=== PATIENT | female | born 1970 | race Two or more races ===

== ENCOUNTER 2017-03-06 23:41 | Emergency (ER) | payer MEDICAID ==
--- NOTE | 2017-03-07 00:45 | RADIOLOGY REPORT (SQ) ---
EXAM DESCRIPTION: CT HEAD WITHOUT COMPLETED DATE/TIME: 03/07/2017 12:17 am REASON FOR STUDY: fall and AMS COMPARISON: None. TECHNIQUE: Axial images acquired through the brain without intravenous contrast. Images reviewed wi th bone, brain and subdural windows. Images stored on PACS. All CT scanners at this facility use dose modulation, iterative reconstruction, and/or weight based d osing when appropriate to reduce radiation dose to as low as reasonably achievable (ALARA). [facility]: Dose Right [facility]: CareDose [facility]: Dose Right [facility]: Teradose 4D [facility]: [employer] RADIATION DOSE: Up-to-date CT equipment and radiation dose reduction techniques were employed. CTDIv ol: 55.2 mGy. DLP: 974 mGy-cm. mGy. LIMITATIONS: None. FINDINGS: VENTRICLES: Normal size and contour. CEREBRUM: No masses. No hemorrhage. No midline shift. Normal hawkins/white matter differentiation. N o evidence for acute infarction. CEREBELLUM: No masses. No hemorrhage. No alteration of density. No evidence for acute infarction. EXTRAAXIAL SPACES: No fluid collections. No masses. ORBITS AND GLOBE: No intra- or extraconal masses. Normal contour of globe without masses. CALVARIUM: No fracture. PARANASAL SINUSES: No fluid or mucosal thickening. SOFT TISSUES: 0.8 cm likely benign epidermal cyst of the right posterior parietal scalp. OTHER: No other significant finding. IMPRESSION: No acute findings. TECHNICAL DOCUMENTATION: JOB ID: [id number] Quality ID # [id number]: Final reports with documentation of one or more dose reduction techniques (e.g., Au tomated exposure control, adjustment of the mA and/or kV according to patient size, use of iterative reconstruction technique) 2010 [employer]- All Rights Reserved
[2017-03-07 01:13] LABS: ABSOLUTE BASOPHILS # (AUTO) 0.1 10^3/uL (0.0-0.2); ABSOLUTE EOSINOPHILS # (AUTO) 0.3 10^3/uL (0.0-0.6); ABSOLUTE LYMPHOCYTES (AUTO) 2.3 10^3/uL (0.5-4.7); ABSOLUTE MONOCYTES (AUTO) 1.1 10^3/uL (0.1-1.4); ABSOLUTE NEUT (AUTO) 7.3 10^3/uL (1.7-8.2); BASOPHILS % (AUTO) 0.7 % (0-2); EOSINOPHILS % (AUTO) 2.9 % (0-6); HEMATOCRIT 38.1 % (36.0-47.0); HEMOGLOBIN 12.7 g/dL (12.0-15.5); LYMPHOCYTES % (AUTO) 20.7 % (13-45); MEAN CORPUSCULAR HEMOGLOBIN 30.5 pg (27.0-33.4); MEAN CORPUSCULAR HGB CONC 33.3 g/dL (32.0-36.0); MEAN CORPUSCULAR VOLUME 92 fl (80-97); MONOCYTES % (AUTO) 9.8 % (3-13); RED BLOOD COUNT 4.15 10^6/uL (3.72-5.28); SEGMENTED NEUTROPHILS % (AUTO) 65.9 % (42-78)
[2017-03-07 01:28] LABS: APPEARANCE,URINE SLIGHTLY-CLOUDY; BILIRUBIN,URINE NEGATIVE (NEGATIVE); GLUCOSE, URINE NEGATIVE (NEGATIVE); KETONES,URINE NEGATIVE (NEGATIVE); LEUKOCYTE ESTERASE,URINE LARGE (NEGATIVE); NITRITE,URINE NEGATIVE (NEGATIVE); PROTEIN,URINE NEGATIVE (NEGATIVE); URINE SPECIFIC GRAVITY 1.008; UROBILINOGEN,URINE NEGATIVE mg/dL (<2.0)
--- NOTE | 2017-03-07 01:30 | ER Document Report ---
ED General - General Chief Complaint: Fall Stated Complaint: ALTERED MENTAL STATUS/FALL Time Seen by Provider: 03/06/17 23:56 Mode of Arrival: Medic Information source: Patient, Relative, Emergency Med Personnel, Outside Facility Records - [facility] Notes: Patient is a 46-year-old female history of multiple sclerosis and schizophrenia presents emergency department from local [facility] with report that she fell and was on the ground. The patient normally is supposed to use a walker, but she has not been using the walker, resulting in some falls. The patient states she struck her head and previously described a headache. On my questioning she denies any headache. She does report some knee pain, and it is unclear as to whether not the knee pain is new or old. The patient denies any chest pain or difficulty breathing. The patient was previously in a [facility] for 8 months and [place], but they transferred the patient due to renovations to the [facility] more locally 6 days ago. The [facility] staff questions whether not the patient may be somewhat altered, although they do not have good assessment of her usual baseline. Discussion was undertaken with the patient's son and he stated that the patient has chronic schizophrenia and this is not much different than her usual baseline. Patient has a chronic indwelling Estrada catheter due to urinary retention. - Related Data Allergies/Adverse Reactions: Macrolide Antibiotics Allergy (Verified 03/07/17 00:18) yellow dye Allergy (Verified 03/07/17 00:18) ketolides Allergy (Uncoded 03/07/17 00:18) yellow dye non-tartrazine Allergy (Uncoded 03/07/17 00:18) Past Medical History - General Information source: Patient Cannot obtain history due to: Altered mental status - Social History Smoking Status: Never Smoker Frequency of alcohol use: None Drug Abuse: None Lives with: Assisted Family History: Reviewed & Not Pertinent Psychiatric Medical History: Reports: Hx Schizophrenia Review of Systems - Review of Systems Notes: REVIEW OF SYSTEMS: CONSTITUTIONAL : Denies fever, chills, or sweats. Denies recent illness. EENT: Denies eye, ear, throat, or mouth pain or symptoms. Denies nasal or sinus congestion or discharge. Denies throat, tongue, or mouth swelling or difficulty swallowing. CARDIOVASCULAR: Denies chest pain. Denies palpitations or racing or irregular heart beat. Denies ankle edema. RESPIRATORY: Denies cough, cold, or chest congestion. Denies shortness of breath, difficulty breathing, or wheezing. GASTROINTESTINAL: Denies abdominal pain or distention. Denies nausea, vomiting , or diarrhea. Denies blood in vomitus, stools, or per rectum. Denies black, tarry stools. Denies constipation. GENITOURINARY: Denies difficulty urinating, painful urination, burning, frequency, blood in urine, or discharge. FEMALE GENITOURINARY: Denies vaginal bleeding, heavy or abnormal periods, irregular periods. Denies vaginal discharge or odor. MUSCULOSKELETAL: Denies back or neck pain or stiffness. Patient reports right knee pain chronically, possibly is worse now. SKIN: Denies rash, lesions or sores. HEMATOLOGIC : Denies easy bruising or bleeding. LYMPHATIC: Denies swollen, enlarged glands. NEUROLOGICAL: skilled nursing report some confusion versus altered mental status. Patient denies this. Denies passing out or loss of consciousness. Denies dizziness or lightheadedness. Denies weakness or paralysis or loss of use of either side. Denies problems with gait or speech. Denies sensory loss, numbness, or tingling. Denies seizures. Report of prior headache. No current headache. PSYCHIATRIC: Denies anxiety or stress. Denies depression, suicidal ideation, or homicidal ideation. ALL OTHER SYSTEMS REVIEWED AND NEGATIVE. Dictation was performed using [employer] voice recognition software Physical Exam - Vital signs Vitals: Temp Pulse Resp BP Pulse Ox 98.2 F 72 18 112/84 96 03/06/17 23:46 03/06/17 23:46 03/06/17 23:46 03/06/17 23:46 03/06/17 23:46 - Notes Notes: Keep the room 20 pyelonephritis had some vomiting previously he is waiting to get vitals for PHYSICAL EXAMINATION: GENERAL: Well-appearing, well-nourished and in no acute distress. HEAD: Atraumatic, normocephalic. EYES: Pupils equal round and reactive to light, extraocular movements intact, conjunctiva are normal. ENT: Nares patent, oropharynx clear without exudates. Moist mucous membranes. NECK: Normal range of motion, supple without lymphadenopathy LUNGS: Breath sounds clear to auscultation bilaterally and equal. No wheezes rales or rhonchi. HEART: Regular rate and rhythm without murmurs ABDOMEN: Soft, nontender, nondistended abdomen. No guarding, no rebound. No masses appreciated. Female : deferred. Chronic indwelling Estrada catheter noted. Musculoskeletal: Normal range of motion, no pitting or edema. No cyanosis. patient has mild pain to the right knee. No crepitance or bony deformity. She has a slight valgus deformity noted there, which appears chronic. Ligamentous structures appear intact. Distally she is neurovascularly intact. NEUROLOGICAL: Cranial nerves grossly intact. Normal sensory exam. Patient has mild bilateral lower extremity weakness but there is no focal unilateral weakness noted. Patient normally ambulates with a walker. PSYCH: Normal mood, normal affect. SKIN: Warm, Dry, normal turgor, no rashes or lesions noted. Course - Re-evaluation Re-evalutation: 03/07/17 03:21 CT scan of the head is negative. Lab studies showed no anemia or renal insufficiency or evidence for sepsis. Patient has no meningismus or neck tenderness. Chronic indwelling Estrada catheter shows evidence for UTI. Urine culture taken. Patient started on Bactrim. No suggestion for acute intracranial injury, sepsis, anemia. According to the patient's son who is contacted, patient appears to be at her mental status baseline. 03/07/17 03:22 - Vital Signs Vital signs: Temp Pulse Resp BP Pulse Ox 98.2 F 72 18 112/84 96 03/06/17 23:46 03/06/17 23:46 03/06/17 23:46 03/06/17 23:46 03/06/17 23:46 - Laboratory Result Diagrams: 03/07/17 01:01 03/07/17 01:35 Laboratory results interpreted by me: 03/07/17 03/07/17 03/07/17 01:01 01:01 01:35 WBC 11.0 H RDW 16.0 H BUN 26 H Direct Bilirubin 0.5 H Urine Blood SMALL H Ur Leukocyte Esterase LARGE H - EKG Interpretation by Il EKG shows normal: Sinus rhythm Rate: Normal Additional EKG results interpreted by me: 03/07/17 03:06 EKG as interpreted by vt showed normal sinus rhythm heart rate of 79. There is no gross evidence for acute PR or ischemia identified. Discharge - Discharge Clinical Impression: Accidental fall Qualifiers: Encounter type: initial encounter Qualified Code(s): W19.XXXA - Unspecified fall, initial encounter Head injury Qualifiers: Encounter type: initial encounter Qualified Code(s): S09.90XA - Unspecified injury of head, initial encounter Urinary tract infection Qualifiers: Urinary tract infection type: catheter-associated UTI Indwelling urinary catheter type: indwelling urethral catheter Encounter type: initial encounter Qualified Code(s): T83.511A - Infection and inflammatory reaction due to indwelling urethral catheter, initial encounter Knee sprain Qualifiers: Encounter type: initial encounter Involved ligament of knee: unspecified ligament Laterality: right Qualified Code(s): S83.91XA - Sprain of unspecified site of right knee, initial encounter Condition: Stable Disposition: HOME, SELF-CARE Instructions: Sprained Knee ([facility]), Ice & Elevation ([facility]), Head Injury Precautions ([facility]) Additional Instructions: Use a walker at all times. Prescriptions: Sulfamethoxazole/Trimethoprim [Bactrim Ds Tablet] 1 each PO BID #20 tablet Referrals: LIU BROCK, REGULATORY CONSULTANT [Primary Care Provider] - Follow up as needed
[2017-03-07 02:07] LABS: ALANINE AMINOTRANSFERASE 27 U/L (9-52); ALKALINE PHOSPHATASE 75 U/L (38-126); ANION GAP 12 (5-19); ASPARTATE AMINO TRANSFERASE 23 U/L (14-36); BILIRUBIN,DIRECT 0.5 mg/dL (0.0-0.4); BILIRUBIN,TOTAL 0.7 mg/dL (0.2-1.3); BLOOD UREA NITROGEN 26 mg/dL (7-20); CALCIUM 9.6 mg/dL (8.4-10.2); CARBON DIOXIDE 30 mmol/L (22-30); CHLORIDE 98 mmol/L (98-107); CREATININE RESULT 0.91 mg/dL (0.52-1.25); GLUCOSE 97 mg/dL (75-110); MAGNESIUM 1.8 mg/dL (1.6-2.3); POTASSIUM 4.1 mmol/L (3.6-5.0); TOTAL PROTEIN 7.5 g/dL (6.3-8.2)
--- NOTE | 2017-03-07 02:23 | RADIOLOGY REPORT (SQ) ---
EXAM DESCRIPTION: KNEE RIGHT 2 VIEWS COMPLETED DATE/TIME: 03/07/2017 2:03 am REASON FOR STUDY: fall with pain COMPARISON: None. NUMBER OF VIEWS: 2 views. TECHNIQUE: AP and lateral radiographic images acquired of the right knee. LIMITATIONS: None. FINDINGS: MINERALIZATION: Normal. BONES: No acute fracture or dislocation. No worrisome bone lesions. JOINT: No effusion. SOFT TISSUES: No soft tissue swelling. No radio-opaque foreign body. OTHER: No other significant finding. IMPRESSION: NEGATIVE STUDY OF THE RIGHT KNEE. NO RADIOGRAPHIC EVIDENCE OF ACUTE INJURY. TECHNICAL DOCUMENTATION: JOB ID: [id number] [employer]- All Rights Reserved
[2017-03-07] MEDS ORDERED: SULFAMETHOXAZOLE/TRIMETHOPRIM 800-160 MG TABLET PO ONE (02:59)
[2017-03-07 05:07] VITALS: BP 126/75
--- NOTE | 2017-03-07 08:12 | EKG REPORT ---
SEVERITY:- NORMAL ECG - SINUS RHYTHM : Confirmed by: Bonifacio Scott MD 07-Mar-2017 08:11:48
== END 2017-03-07 05:00 | disposition home or self-care (01) ==
LOC: ER 23:41
DX: S83.91XA Sprain of unspecified site of right knee, initial encounter (principal); S09.90XA Unspecified injury of head, initial encounter; W19.XXXA Unspecified fall, initial encounter; Y92.129 Unspecified place in nursing home as the place of occurrence of the external cause; T83.511A Infection and inflammatory reaction due to indwelling urethral catheter, initial encounter; Y73.8 Miscellaneous gastroenterology and urology devices associated with adverse incidents, not elsewhere classified; R33.9 Retention of urine, unspecified; G35 Multiple sclerosis; F20.9 Schizophrenia, unspecified; M25.561 Pain in right knee; G89.29 Other chronic pain; Z88.1 Allergy status to other antibiotic agents; Z91.048 Other nonmedicinal substance allergy status
CPT/HCPCS: 93005; 99285; 36415; 87086; 83735; 85025; 87088; 80053; 81001; 87186; 73560; 70450; 93010; J3490

== ENCOUNTER 2017-03-09 16:05 | Emergency (ER) | payer MEDICAID ==
--- NOTE | 2017-03-09 17:18 | ER Document Report ---
ED Medical Screen (RME) - General Chief Complaint: Urinary Problem Stated Complaint: FATIGUE Time Seen by Provider: 03/09/17 17:15 Mode of Arrival: Medic Information source: Patient, Emergency Med Personnel, [facility] Records, Outside Facility Records Notes: This is a 46-year-old female with a history of schizophrenia and multiple sclerosis who is brought into the emergency room because of increased lethargy and somnolence. Review of hospital records reveals that she was evaluated a few days ago after falling and hitting her head. CT of the head at that time showed no acute bleed. Review of the patient's records from [place] has reveals that she is on a number of medicines that can result in increased lethargy. Patient states she does not feel that well right now. She is not able to elaborate any further. There is no history from the records of any fever, chills or recent illnesses. TRAVEL OUTSIDE OF THE [place] IN LAST 30 DAYS: No - Related Data Allergies/Adverse Reactions: Macrolide Antibiotics Allergy (Verified 03/09/17 16:16) yellow dye Allergy (Verified 03/09/17 16:16) ketolides Allergy (Uncoded 03/09/17 16:16) yellow dye non-tartrazine Allergy (Uncoded 03/09/17 16:16) Past Medical History Renal/ Medical History: Denies: Hx Peritoneal Dialysis Psychiatric Medical History: Reports: Hx Schizophrenia Physical Exam - Vital signs Vitals: Pulse Resp BP Pulse Ox 99 20 148/106 H 98 03/09/17 16:12 03/09/17 16:12 03/09/17 16:12 03/09/17 16:12 Course - Vital Signs Vital signs: Temp Pulse Resp BP Pulse Ox 99 20 148/106 H 98 03/09/17 16:12 03/09/17 16:12 03/09/17 16:12 03/09/17 16:12
[2017-03-09 18:09] LABS: ABSOLUTE BASOPHILS # (AUTO) 0.1 10^3/uL (0.0-0.2); ABSOLUTE EOSINOPHILS # (AUTO) 0.1 10^3/uL (0.0-0.6); ABSOLUTE LYMPHOCYTES (AUTO) 2.8 10^3/uL (0.5-4.7); ABSOLUTE MONOCYTES (AUTO) 0.8 10^3/uL (0.1-1.4); ABSOLUTE NEUT (AUTO) 5.6 10^3/uL (1.7-8.2); BASOPHILS % (AUTO) 0.9 % (0-2); EOSINOPHILS % (AUTO) 1.4 % (0-6); HEMATOCRIT 39.1 % (36.0-47.0); HGB HCT DIFFERENCE -0.1; LYMPHOCYTES % (AUTO) 29.6 % (13-45); MEAN CORPUSCULAR HEMOGLOBIN 30.7 pg (27.0-33.4); MEAN CORPUSCULAR HGB CONC 33.2 g/dL (32.0-36.0); MEAN CORPUSCULAR VOLUME 93 fl (80-97); MONOCYTES % (AUTO) 8.7 % (3-13); RED BLOOD COUNT 4.23 10^6/uL (3.72-5.28); RED CELL DISTRIBUTION WIDTH 15.4 % (11.5-14.0); SEGMENTED NEUTROPHILS % (AUTO) 59.4 % (42-78); WHITE BLOOD COUNT 9.3 10^3/uL (4.0-10.5)
--- NOTE | 2017-03-09 18:14 | RADIOLOGY REPORT (SQ) ---
EXAM DESCRIPTION: CHEST SINGLE VIEW COMPLETED DATE/TIME: 03/09/2017 6:06 pm REASON FOR STUDY: altered ms COMPARISON: None. EXAM PARAMETERS: NUMBER OF VIEWS: One view. TECHNIQUE: Single frontal radiographic view of the chest acquired. RADIATION DOSE: NA LIMITATIONS: None. FINDINGS: LUNGS AND PLEURA: No opacities, masses or pneumothorax. No pleural effusion. MEDIASTINUM AND HILAR STRUCTURES: No masses. Contour normal. HEART AND VASCULAR STRUCTURES: Heart normal in size. Normal vasculature. BONES: No acute findings. HARDWARE: None in the chest. OTHER: No other significant finding. IMPRESSION: NO ACUTE RADIOGRAPHIC FINDING IN THE CHEST. TECHNICAL DOCUMENTATION: JOB ID: [id number]
[2017-03-09 18:20] LABS: ALANINE AMINOTRANSFERASE 29 U/L (9-52); ALBUMIN 4.2 g/dL (3.5-5.0); ALKALINE PHOSPHATASE 83 U/L (38-126); ANION GAP 12 (5-19); ASPARTATE AMINO TRANSFERASE 33 U/L (14-36); BILIRUBIN,DIRECT 0.5 mg/dL (0.0-0.4); BILIRUBIN,TOTAL 0.6 mg/dL (0.2-1.3); BLOOD UREA NITROGEN 28 mg/dL (7-20); CALCIUM 9.7 mg/dL (8.4-10.2); CARBON DIOXIDE 29 mmol/L (22-30); CHLORIDE 100 mmol/L (98-107); CREATININE RESULT 1.32 mg/dL (0.52-1.25); GLUCOSE 90 mg/dL (75-110); MAGNESIUM 1.9 mg/dL (1.6-2.3); POTASSIUM 4.1 mmol/L (3.6-5.0); SODIUM 141.1 mmol/L (137-145); TOTAL PROTEIN 7.9 g/dL (6.3-8.2)
--- NOTE | 2017-03-09 18:20 | RADIOLOGY REPORT (SQ) ---
EXAM DESCRIPTION: CT HEAD WITHOUT COMPLETED DATE/TIME: 03/09/2017 6:08 pm REASON FOR STUDY: somnolence COMPARISON: 03/07/2017 TECHNIQUE: Axial images acquired through the brain without intravenous contrast. Images reviewed wi th bone, brain and subdural windows. Images stored on PACS. All CT scanners at this facility use dose modulation, iterative reconstruction, and/or weight based d osing when appropriate to reduce radiation dose to as low as reasonably achievable (ALARA). [facility]: Dose Right [facility]: CareDose [facility]: Dose Right [facility]: Teradose 4D [facility]: [employer] RADIATION DOSE: mGy. LIMITATIONS: None. FINDINGS: VENTRICLES: Normal size and contour. CEREBRUM: No masses. No hemorrhage. No midline shift. Normal hawkins/white matter differentiation. N o evidence for acute infarction. CEREBELLUM: No masses. No hemorrhage. No alteration of density. No evidence for acute infarction. EXTRAAXIAL SPACES: No fluid collections. No masses. ORBITS AND GLOBE: No intra- or extraconal masses. Normal contour of globe without masses. CALVARIUM: No fracture. PARANASAL SINUSES: No fluid or mucosal thickening. SOFT TISSUES: No mass or hematoma. OTHER: No other significant finding. IMPRESSION: No acute intracranial findings. TECHNICAL DOCUMENTATION: JOB ID: [id number] Quality ID # [id number]: Final reports with documentation of one or more dose reduction techniques (e.g., Au tomated exposure control, adjustment of the mA and/or kV according to patient size, use of iterative reconstruction technique) 2010 [employer]- All Rights Reserved
--- NOTE | 2017-03-09 18:34 | ER Document Report ---
ED General - General Mode of Arrival: Medic Information source: Patient, Transfer Record, [facility] Records TRAVEL OUTSIDE OF THE [place] IN LAST 30 DAYS: No - HPI Onset: Other - Refer to HPI notes <LAISHA SEN - Last Filed: 03/09/17 20:34> <DESIREMCKAY ANN - Last Filed: 03/09/17 21:53> - General Chief Complaint: Urinary Problem Stated Complaint: FATIGUE Time Seen by Provider: 03/09/17 17:15 Notes: Patient is a 46-year-old female presenting to the emergency department from [facility] for increased lethargy and somnolence. Patient was evaluated in this emergency department a few days ago after a fall and head injury. Patient has history of schizophrenia and multiple sclerosis. Patient states she does not feel well right now she feels more tired than normally. Patient denies any symptoms of dysuria, fever or other recent illness. (LAISHA SEN) - Related Data Allergies/Adverse Reactions: Macrolide Antibiotics Allergy (Verified 03/09/17 16:16) yellow dye Allergy (Verified 03/09/17 16:16) ketolides Allergy (Uncoded 03/09/17 16:16) yellow dye non-tartrazine Allergy (Uncoded 03/09/17 16:16) Past Medical History - General Information source: Patient, Emergency Med Personnel, [facility] Records, Outside Facility Records - Social History Smoking Status: Unknown if Ever Smoked Family History: None Patient has suicidal ideation: No Patient has homicidal ideation: No Musculoskeltal Medical History: Reports Hx Multiple Sclerosis Psychiatric Medical History: Reports: Hx Schizophrenia Surgical Hx: Negative <LAISHA SEN - Last Filed: 03/09/17 20:34> Review of Systems - Review of Systems Constitutional: See HPI, Malaise, Weakness EENT: No symptoms reported Cardiovascular: No symptoms reported Respiratory: No symptoms reported Gastrointestinal: No symptoms reported Genitourinary: No symptoms reported Female Genitourinary: No symptoms reported Musculoskeletal: No symptoms reported Skin: No symptoms reported Hematologic/Lymphatic: No symptoms reported Neurological/Psychological: See HPI, Weakness -: Yes All other systems reviewed and negative <LAISHA SEN - Last Filed: 03/09/17 20:34> Physical Exam - Vital signs Interpretation: Hypertensive <LAISHA SEN - Last Filed: 03/09/17 20:34> <MCKAY PHIPPS - Last Filed: 03/09/17 21:53> - Vital signs Vitals: Pulse Resp BP Pulse Ox 99 20 148/106 H 98 03/09/17 16:12 03/09/17 16:12 03/09/17 16:12 03/09/17 16:12 - Notes Notes: GENERAL: Alert, drowsy but arousable, appears at baseline. Mild distress. HEAD: Normocephalic, atraumatic. EYES: Appear normal. Pupils equal, round, and reactive to light. ENT: Dry mucus membranes, tongue midline. NECK: Full range of motion. Supple. Trachea midline. LUNGS: Clear to auscultation bilaterally, no wheezes, rales, or rhonchi. No respiratory distress. HEART: Regular rate and rhythm. No murmurs, gallops, or rubs. ABDOMEN: Soft, non-tender. Non-distended. Normal bowel sounds. EXTREMITIES: Moves all 4 extremities spontaneously. Normal strength. No edema. NEUROLOGICAL: Alert. Patient is neurologically at her baseline. PSYCH: Normal affect, normal mood. SKIN: Warm, dry, normal turgor. No rashes or lesions noted. (LAISHA SEN) Course - Laboratory Result Diagrams: 03/09/17 17:52 03/09/17 17:52 <LAISHA SEN - Last Filed: 03/09/17 20:34> - Laboratory Result Diagrams: 03/09/17 17:52 03/09/17 17:52 <MCKAY PHIPPS - Last Filed: 03/09/17 21:53> - Re-evaluation Re-evalutation: 03/09/17 21:50 Patient is a 46-year-old female who was sent in from [facility] for weakness and being tired. Patient states that she feels well but she has been more tired lately. Patient was recently seen for a fall. No acute findings on head CT. Patient was also recently diagnosed with UTI and started on Bactrim. Patient with increased WBCs in urine. Patient given a dose of Rocephin here and will be discharged home with Cefdinir/ Macrobid. The patient was going to be given Keflex but has a yellow dye allergy. Slight acute renal insufficiency likely from decreased p.o. Patient has been fluid hydrated here and is feeling better. Stable for discharge. Urine sent for culture. (MCKAY PHIPPS) - Vital Signs Vital signs: Temp Pulse Resp BP Pulse Ox 98.9 F 90 20 140/92 H 98 03/09/17 20:51 03/09/17 20:51 03/09/17 20:51 03/09/17 20:51 03/09/17 20:51 - Laboratory Laboratory results interpreted by me: 03/09/17 03/09/17 03/09/17 17:52 17:52 18:10 RDW 15.4 H BUN 28 H Creatinine 1.32 H Est GFR ( Amer) 52 L Est GFR (Non-Af Amer) 43 L Direct Bilirubin 0.5 H Urine Protein 100 H Urine Ketones TRACE H Urine Urobilinogen 2.0 H Ur Leukocyte Esterase LARGE H Urine Ascorbic Acid 40 H Discharge <LAISHA SEN - Last Filed: 03/09/17 20:34> <MCKAY PHIPPS - Last Filed: 03/09/17 21:53> - Discharge Clinical Impression: Urinary tract infection Qualifiers: Urinary tract infection type: site unspecified Hematuria presence: with hematuria Qualified Code(s): N39.0 - Urinary tract infection, site not specified ; R31.9 - Hematuria, unspecified Condition: Stable Disposition: HOME, SELF-CARE Instructions: Urinary Tract Infection ([facility]) Additional Instructions: Please stop taking Bactrim and start taking Cefdinir and macrobid instead. Please return if you have any further concerns or symptoms. Prescriptions: Cefdinir [Omnicef 300 mg Capsule] 1 cap PO BID #30 capsule Nitrofurantoin/Nitrofuran Mac [Macrobid 100 mg Capsule] 1 tab PO BID #20 capsule Referrals: LIU BROCK, T[facility]NER [Primary Care Provider] - Follow up as needed Scribe Attestation: 03/09/17 21:52 I personally performed the services described in the documentation, reviewed and edited the documentation which was dictated to the scribe in my presence, and it accurately records my words and actions. (MCKAY PHIPPS) Scribe Documentation - Scribe Written by Scribe:: Monica Lewis, 03/09/[id number] acting as scribe for :: Desire <LAISHA SEN - Last Filed: 03/09/17 20:34>
[2017-03-09 18:41] LABS: APPEARANCE,URINE TURBID; BILIRUBIN,URINE NEGATIVE (NEGATIVE); GLUCOSE, URINE NEGATIVE (NEGATIVE); KETONES,URINE TRACE mg/dL (NEGATIVE); LEUKOCYTE ESTERASE,URINE LARGE (NEGATIVE); NITRITE,URINE NEGATIVE (NEGATIVE); PROTEIN,URINE 100 mg/dL (NEGATIVE)
[2017-03-09] MEDS ORDERED: NORMAL SALINE 500 ML IV ONE (19:02)
[2017-03-09] MEDS ORDERED: LIDOCAINE 1% INJ-PF (10 MG/ML) 30 ML SDV INFIL ONE (19:03)
[2017-03-09] MEDS ORDERED: CEFTRIAXONE INJ 1000 MG VIAL IM ONE (19:03)
[2017-03-09 23:27] VITALS: BP 132/92
== END 2017-03-10 | disposition home or self-care (01) ==
LOC: ER 16:05
DX: N39.0 Urinary tract infection, site not specified (principal); R31.9 Hematuria, unspecified; R53.83 Other fatigue; R53.1 Weakness; G35 Multiple sclerosis
CPT/HCPCS: 99284; 96372; 36415; 87086; 83735; 85025; 87088; 80053; 81001; 80164; 87186; 71010; 70450; J3490; J0696

== ENCOUNTER 2017-03-10 06:50 | Emergency (ER) | payer MEDICAID ==
--- NOTE | 2017-03-10 06:56 | ER Document Report ---
ED General - General Stated Complaint: FALL,CATHETER ISSUE Time Seen by Provider: 03/10/17 06:55 Mode of Arrival: Medic Information source: Patient, Emergency Med Personnel Notes: 46-year-old female who presents from care facility where she has an indwelling Estrada catheter presents with complaints of Estrada catheter issue, notes patient had fallen and pulled out her Estrada TRAVEL OUTSIDE OF THE [place] IN LAST 30 DAYS: No - HPI Onset: Just prior to arrival Onset/Duration: Sudden Quality of pain: No pain Severity: None Pain Level: Denies Associated symptoms: None Exacerbated by: Denies Relieved by: Denies Similar symptoms previously: Yes Recently seen / treated by doctor: Yes - Related Data Allergies/Adverse Reactions: Macrolide Antibiotics Allergy (Verified 03/09/17 16:16) yellow dye Allergy (Verified 03/09/17 16:16) ketolides Allergy (Uncoded 03/09/17 16:16) yellow dye non-tartrazine Allergy (Uncoded 03/09/17 16:16) Past Medical History - Social History Smoking Status: Never Smoker Cigarette use (# per day): No Chew tobacco use (# tins/day): No Smoking Education Provided: No Family History: None Renal/ Medical History: Denies: Hx Peritoneal Dialysis Musculoskeltal Medical History: Reports Hx Multiple Sclerosis Psychiatric Medical History: Reports: Hx Schizophrenia Review of Systems - Review of Systems Notes: REVIEW OF SYSTEMS: CONSTITUTIONAL : Denies fever, chills, or sweats. Denies recent illness. EENT: Denies eye, ear, throat, or mouth pain or symptoms. Denies nasal or sinus congestion or discharge. Denies throat, tongue, or mouth swelling or difficulty swallowing. CARDIOVASCULAR: Denies chest pain. Denies palpitations or racing or irregular heart beat. Denies ankle edema. RESPIRATORY: Denies cough, cold, or chest congestion. Denies shortness of breath, difficulty breathing, or wheezing. GASTROINTESTINAL: Denies abdominal pain or distention. Denies nausea, vomiting , or diarrhea. Denies blood in vomitus, stools, or per rectum. Denies black, tarry stools. Denies constipation. GENITOURINARY: Denies difficulty urinating, painful urination, burning, frequency, blood in urine, or discharge. FEMALE GENITOURINARY: Denies vaginal bleeding, heavy or abnormal periods, irregular periods. Denies vaginal discharge or odor. MUSCULOSKELETAL: Denies back or neck pain or stiffness. Denies joint pain or swelling. SKIN: Denies rash, lesions or sores. HEMATOLOGIC : Denies easy bruising or bleeding. LYMPHATIC: Denies swollen, enlarged glands. NEUROLOGICAL: Denies confusion or altered mental status. Denies passing out or loss of consciousness. Denies dizziness or lightheadedness. Denies headache. Denies weakness or paralysis or loss of use of either side. Denies problems with gait or speech. Denies sensory loss, numbness, or tingling. Denies seizures. PSYCHIATRIC: Denies anxiety or stress. Denies depression, suicidal ideation, or homicidal ideation. ALL OTHER SYSTEMS REVIEWED AND NEGATIVE. PHYSICAL EXAMINATION: GENERAL: Well-appearing, well-nourished and in no acute distress. HEAD: Atraumatic, normocephalic. EYES: Pupils equal round and reactive to light, extraocular movements intact, conjunctiva are normal. ENT: Dry lips rhythmic motion of mouth nares patent, oropharynx clear without exudates. NECK: Normal range of motion, supple without lymphadenopathy LUNGS: Breath sounds clear to auscultation bilaterally and equal. No wheezes rales or rhonchi. HEART: Regular rate and rhythm without murmurs ABDOMEN: Soft, nontender, nondistended abdomen. No guarding, no rebound. No masses appreciated. Female : Estrada catheter is in place Musculoskeletal: Normal range of motion, no pitting or edema. No cyanosis. NEUROLOGICAL: Cranial nerves grossly intact. Normal speech, normal gait. Normal sensory, motor exams PSYCH: Normal mood, normal affect. SKIN: Warm, Dry, normal turgor, no rashes or lesions noted. Dictation was performed using [employer] voice recognition software Physical Exam - Vital signs Vitals: Temp Pulse Resp BP Pulse Ox 98.9 F 96 18 138/87 H 100 03/10/17 06:54 03/10/17 06:54 03/10/17 06:54 03/10/17 06:54 03/10/17 06:54 Course - Re-evaluation Re-evalutation: 03/10/17 08:28 It appears the Estrada catheter is in place but the Estrada bag was dislodged, I simply put it back into the Estrada and urine began draining immediately. It is noted that the patient's pants were wet because urine was already draining from the open Estrada After performing a Medical Screening Examination, I estimate there is LOW risk for ACUTE APPENDICITIS, BOWEL OBSTRUCTION, ACUTE CHOLECYSTITIS, PERFORATED DIVERTICULITIS, INCARCERATED HERNIA, PANCREATITIS, PELVIC INFLAMMATORY DISEASE, PERFORATED ULCER, ECTOPIC , or TUBO-OVARIAN ABSCESS, thus I consider the discharge disposition reasonable. Also, there is no evidence or peritonitis , sepsis, or toxicity. I have reevaluated this patient multiple times and no significant life threatening changes are noted. The patient and I have discussed the diagnosis and risks, and we agree with discharging home with close follow-up with the understanding that symptoms and presentations can change. We also discussed returning to the Emergency Department immediately if new or worsening symptoms occur. We have discussed the symptoms which are most concerning (e.g., bloody stool, fever, changing or worsening pain, vomiting) that necessitate immediate return. - Vital Signs Vital signs: Temp Pulse Resp BP Pulse Ox 98.9 F 96 18 138/87 H 100 03/10/17 06:54 03/10/17 06:54 03/10/17 06:54 03/10/17 06:54 03/10/17 06:54 Discharge - Discharge Clinical Impression: Estrada catheter problem Qualifiers: Encounter type: initial encounter Qualified Code(s): T83.9XXA - Unspecified complication of genitourinary prosthetic device, implant and graft, initial encounter Accidental fall Qualifiers: Encounter type: initial encounter Qualified Code(s): W19.XXXA - Unspecified fall, initial encounter Condition: Stable Disposition: HOME, SELF-CARE Additional Instructions: The Estrada catheter did not come out of the patient, it was just dislodged from the Estrada bag all you had to do was push the end of the Estrada bag tubing back into the catheter Referrals: LIU BROCK, LABOR EXPEDITER [Primary Care Provider] - Follow up as needed
[2017-03-10 06:57] VITALS: BP 138/87
== END 2017-03-10 08:05 | disposition home or self-care (01) ==
LOC: ER 06:50
DX: Z46.6 Encounter for fitting and adjustment of urinary device (principal); W19.XXXA Unspecified fall, initial encounter; Y92.199 Unspecified place in other specified residential institution as the place of occurrence of the external cause; G35 Multiple sclerosis; Z88.1 Allergy status to other antibiotic agents; Z91.048 Other nonmedicinal substance allergy status
CPT/HCPCS: 99284

== ENCOUNTER 2017-03-11 13:34 | Emergency (ER) | payer MEDICAID ==
--- NOTE | 2017-03-11 14:28 | ER Document Report ---
Doctor's Note Notes: 03/11/17 14:26 46-year-old female history of MS schizophrenia indwelling Estrada catheter removed here approximately a week and half ago and has not been here 4 times in the last 5 days with folds and other complaints presents after another fall. I have greeted and performed a rapid initial assessment of this patient. A comprehensive ED assessment and evaluation of the patient, analysis of test results and completion of the medical decision making process will be conducted by additional ED providers. PHYSICAL EXAMINATION: GENERAL: Patient is at her baseline rhythmic movement of her mouth HEAD: Atraumatic, normocephalic. EYES: Pupils equal round extraocular movements intact, conjunctiva are normal. ENT: Nares patent NECK: Normal range of motion LUNGS: No respiratory distress PSYCH: History of baseline mental disability SKIN: Warm, Dry, normal turgor, no rashes or lesions noted.
[2017-03-11 14:57] LABS: ABSOLUTE BASOPHILS # (AUTO) 0.1 10^3/uL (0.0-0.2); ABSOLUTE EOSINOPHILS # (AUTO) 0.2 10^3/uL (0.0-0.6); ABSOLUTE LYMPHOCYTES (AUTO) 2.3 10^3/uL (0.5-4.7); ABSOLUTE NEUT (AUTO) 5.5 10^3/uL (1.7-8.2); EOSINOPHILS % (AUTO) 1.9 % (0-6); HEMATOCRIT 37.9 % (36.0-47.0); HEMOGLOBIN 12.9 g/dL (12.0-15.5); HGB HCT DIFFERENCE 0.8; LYMPHOCYTES % (AUTO) 25.2 % (13-45); MEAN CORPUSCULAR HEMOGLOBIN 30.9 pg (27.0-33.4); MEAN CORPUSCULAR HGB CONC 34.1 g/dL (32.0-36.0); MEAN CORPUSCULAR VOLUME 91 fl (80-97); MONOCYTES % (AUTO) 11.2 % (3-13); RED BLOOD COUNT 4.18 10^6/uL (3.72-5.28); SEGMENTED NEUTROPHILS % (AUTO) 60.7 % (42-78); WHITE BLOOD COUNT 9.1 10^3/uL (4.0-10.5)
[2017-03-11 15:04] LABS: PROTHROMBIN TIME 13.5 SEC (11.4-15.4)
[2017-03-11 15:08] LABS: ALANINE AMINOTRANSFERASE 43 U/L (9-52); ALBUMIN 4.2 g/dL (3.5-5.0); ALKALINE PHOSPHATASE 81 U/L (38-126); ANION GAP 13 (5-19); ASPARTATE AMINO TRANSFERASE 50 U/L (14-36); BILIRUBIN,DIRECT 0.5 mg/dL (0.0-0.4); BILIRUBIN,TOTAL 0.7 mg/dL (0.2-1.3); BLOOD UREA NITROGEN 28 mg/dL (7-20); CALCIUM 9.8 mg/dL (8.4-10.2); CARBON DIOXIDE 26 mmol/L (22-30); CHLORIDE 100 mmol/L (98-107); CREATININE RESULT 1.43 mg/dL (0.52-1.25); GLUCOSE 100 mg/dL (75-110); POTASSIUM 4.1 mmol/L (3.6-5.0)
--- NOTE | 2017-03-11 15:33 | RADIOLOGY REPORT (SQ) ---
EXAM DESCRIPTION: CT HEAD WITHOUT COMPLETED DATE/TIME: 03/11/2017 3:00 pm REASON FOR STUDY: fall head injury COMPARISON: 03/09/2017 TECHNIQUE: Axial images acquired through the brain without intravenous contrast. Images reviewed wi th bone, brain and subdural windows. Images stored on PACS. All CT scanners at this facility use dose modulation, iterative reconstruction, and/or weight based d osing when appropriate to reduce radiation dose to as low as reasonably achievable (ALARA). [facility]: Dose Right [facility]: CareDose [facility]: Dose Right [facility]: Teradose 4D [facility]: Smart [employer] RADIATION DOSE: Up-to-date CT equipment and radiation dose reduction techniques were employed. CTDIv ol: 64.6 mGy. DLP: 1034 mGy-cm. mGy. LIMITATIONS: None. FINDINGS: VENTRICLES: Normal size and contour. CEREBRUM: No masses. No hemorrhage. No midline shift. Normal hawkins/white matter differentiation. N o evidence for acute infarction. CEREBELLUM: No masses. No hemorrhage. No alteration of density. No evidence for acute infarction. EXTRAAXIAL SPACES: No fluid collections. No masses. ORBITS AND GLOBE: No intra- or extraconal masses. Normal contour of globe without masses. CALVARIUM: No fracture. PARANASAL SINUSES: No fluid or mucosal thickening. SOFT TISSUES: No mass or hematoma. OTHER: No other significant finding. IMPRESSION: No significant interval change. No acute changes. Other findings as noted above TECHNICAL DOCUMENTATION: JOB ID: [id number] Quality ID # [id number]: Final reports with documentation of one or more dose reduction techniques (e.g., Au tomated exposure control, adjustment of the mA and/or kV according to patient size, use of iterative reconstruction technique) 2010 [employer]- All Rights Reserved
--- NOTE | 2017-03-11 15:44 | RADIOLOGY REPORT (SQ) ---
EXAM DESCRIPTION: CHEST PA/LAT COMPLETED DATE/TIME: 03/11/2017 3:14 pm REASON FOR STUDY: fall COMPARISON: 03/09/2017 EXAM PARAMETERS: NUMBER OF VIEWS: two views TECHNIQUE: Digital Frontal and Lateral radiographic views of the chest acquired. RADIATION DOSE: NA LIMITATIONS: none FINDINGS: LUNGS AND PLEURA: No opacities, masses or pneumothorax. No pleural effusion. MEDIASTINUM AND HILAR STRUCTURES: No masses or contour abnormalities. HEART AND VASCULAR STRUCTURES: Heart normal size. No evidence for failure. BONES: No acute findings. HARDWARE: None in the chest. OTHER: No other significant finding. IMPRESSION: NO SIGNIFICANT RADIOGRAPHIC FINDING IN THE CHEST. TECHNICAL DOCUMENTATION: JOB ID: [id number] [employer]- All Rights Reserved
[2017-03-11 16:03] LABS: AMORPHOUS SEDIMENT,URINE TRACE /HPF; APPEARANCE,URINE SLIGHTLY-CLOUDY; BILIRUBIN,URINE NEGATIVE (NEGATIVE); GLUCOSE, URINE NEGATIVE (NEGATIVE); KETONES,URINE NEGATIVE (NEGATIVE); LEUKOCYTE ESTERASE,URINE SMALL (NEGATIVE); NITRITE,URINE NEGATIVE (NEGATIVE); PROTEIN,URINE NEGATIVE (NEGATIVE); UROBILINOGEN,URINE NEGATIVE mg/dL (<2.0)
--- NOTE | 2017-03-11 16:24 | RADIOLOGY REPORT (SQ) ---
EXAM DESCRIPTION: CT LTD RENAL STONE PROTOCOL ON COMPLETED DATE/TIME: 03/11/2017 3:57 pm REASON FOR STUDY: right flank pain COMPARISON: None. TECHNIQUE: CT scan of the abdomen and pelvis performed without intravenous or oral contrast. Images reviewed with lung, soft tissue, and bone windows. Reconstructed coronal and sagittal MPR images revi ewed. All images stored on PACS. All CT scanners at this facility use dose modulation, iterative reconstruction, and/or weight based d osing when appropriate to reduce radiation dose to as low as reasonably achievable (ALARA). [facility]: Dose Right [facility]: CareDose [facility]: Dose Right [facility]: Teradose 4D [facility]: Smart [employer] RADIATION DOSE: Up-to-date CT equipment and radiation dose reduction techniques were employed. CTDIv ol: 17.3 mGy. DLP: 969 mGy-cm.mGy. LIMITATIONS: None. FINDINGS: LOWER CHEST: No significant findings. No nodules or infiltrates. NON-CONTRASTED LIVER, SPLEEN, ADRENALS: Evaluation limited by lack of IV contrast. No identified sign ificant masses. PANCREAS: No masses. No peripancreatic inflammatory changes. GALLBLADDER: No identified stones by CT criteria. No inflammatory changes to suggest cholecystitis. RIGHT KIDNEY AND URETER: No suspicious masses. Assessment limited by lack of IV contrast. No signif icant calcifications. No hydronephrosis or hydroureter. LEFT KIDNEY AND URETER: No suspicious masses. Assessment limited by lack of IV contrast. No signifi cant calcifications. No hydronephrosis or hydroureter. AORTA AND RETROPERITONEUM: No aneurysm. No retroperitoneal masses or adenopathy. BOWEL AND PERITONEAL CAVITY: No obvious masses or inflammatory changes. No free fluid. APPENDIX: Normal. PELVIS, BLADDER, AND ABDOMINAL WALL:No abnormal masses. No free fluid. Bladder contains a Estrada marina ter. BONES: No significant findings. OTHER: No other significant finding. IMPRESSION: NO ACUTE PROCESS IN THE ABDOMEN OR PELVIS. TECHNICAL DOCUMENTATION: JOB ID: [id number] Quality ID # [id number]: Final reports with documentation of one or more dose reduction techniques (e.g., Au tomated exposure control, adjustment of the mA and/or kV according to patient size, use of iterative reconstruction technique) 2010 [employer]- All Rights Reserved
[2017-03-11] MEDS ORDERED: NORMAL SALINE 1000 ML 1,000 ML IV PRN ×2 (16:34→16:49)
[2017-03-11 16:40] LABS: VENOUS BLOOD BASE EXCESS 4.6 mmol/L; VENOUS BLOOD HCO3 29.3 mmol/L (20-32); VENOUS BLOOD PCO2 44.1 mmHg (35-63); VENOUS BLOOD PH 7.44 (7.30-7.42)
--- NOTE | 2017-03-11 17:50 | ER Document Report ---
ED General - General Chief Complaint: Fall Stated Complaint: FALL,HEAD INJURY Time Seen by Provider: 03/11/17 14:05 Mode of Arrival: Ambulatory Information source: Patient Notes: Is a 46-year-old female with a history of schizophrenia and multiple sclerosis that is a resident of the [facility]. Patient is brought in by EMS after a fall today. Patient was out smoking a cigarette and fell out of her chair. Patient had 3 other previous encounters in the emergency room for weakness and falling over the past week or so. In the emergency room, the patient is alert and does not appear to be in any distress. TRAVEL OUTSIDE OF THE [place] IN LAST 30 DAYS: No - Related Data Allergies/Adverse Reactions: Macrolide Antibiotics Allergy (Verified 03/11/17 13:55) yellow dye Allergy (Verified 03/11/17 13:55) ketolides Allergy (Uncoded 03/11/17 13:55) yellow dye non-tartrazine Allergy (Uncoded 03/11/17 13:55) Past Medical History - Social History Smoking Status: Current Every Day Smoker Chew tobacco use (# tins/day): No Frequency of alcohol use: Occasional Drug Abuse: None Family History: None Patient has suicidal ideation: No Patient has homicidal ideation: No Renal/ Medical History: Denies: Hx Peritoneal Dialysis Musculoskeltal Medical History: Reports Hx Multiple Sclerosis Psychiatric Medical History: Reports: Hx Schizophrenia Physical Exam - Vital signs Vitals: Temp Pulse Resp BP Pulse Ox 98.1 F 103 H 18 139/85 H 96 03/11/17 13:55 03/11/17 13:55 03/11/17 13:55 03/11/17 13:55 03/11/17 13:55 Notes: Physical exam: GENERAL: 6-year-old female, alert, no acute distress, lying in stretcher HEAD: Atraumatic, normocephalic. EYES: Pupils equal round and reactive to light, extraocular movements intact, sclera anicteric, conjunctiva are normal. ENT: TMs normal, nares patent, oropharynx clear without exudates. Moist mucous membranes. NECK: Normal range of motion, supple without lymphadenopathy or JVD. LUNGS: Breath sounds clear to auscultation bilaterally and equal. No wheezes rales or rhonchi. HEART: Regular rate and rhythm without murmurs, rubs or gallops. ABDOMEN: Soft, normoactive bowel sounds. No tenderness to palpation. No guarding, no rebound. No masses appreciated. Chronic Estrada catheter. EXTREMITIES: Normal range of motion, no pitting or edema. No clubbing or cyanosis. NEUROLOGICAL: Cranial nerves II through XII grossly intact. Speech garbled which is baseline. Moving all extremities. PSYCH: Normal mood, normal affect. SKIN: Warm, Dry, normal turgor, no rashes or lesions noted. Course - Re-evaluation Re-evalutation: 03/11/17 17:51 Note: We have given the patient IV fluids while in the ER. I did discuss the case with Dr. Vicente for possible admission given that the patient had been here for multiple recent encounters. She recommended the IV fluids and recommended stopping the diuretics for the next few days and having the patient go back to the [facility] today. CT and chest x-ray look good. Given the mild elevation creatinine, CT of the abdomen was performed just to rule out an obstructive uropathy: CT showed no evidence of this. 03/11/17 17:53 - Vital Signs Vital signs: Temp Pulse Resp BP Pulse Ox 98.1 F 103 H 18 139/85 H 96 03/11/17 13:55 03/11/17 13:55 03/11/17 13:55 03/11/17 13:55 03/11/17 13:55 - Laboratory Result Diagrams: 03/11/17 14:35 03/11/17 14:35 Laboratory results interpreted by me: 03/11/17 03/11/17 03/11/17 14:35 14:35 14:35 RDW 15.0 H VBG pH BUN 28 H Creatinine 1.43 H Est GFR ( Amer) 48 L Est GFR (Non-Af Amer) 39 L Direct Bilirubin 0.5 H AST 50 H Urine Blood Ur Leukocyte Esterase E[place] < 0.2 L 03/11/17 03/11/17 15:30 16:32 RDW VBG pH 7.44 H BUN Creatinine Est GFR ( Amer) Est GFR (Non-Af Amer) Direct Bilirubin AST Urine Blood SMALL H Ur Leukocyte Esterase SMALL H [place] Discharge - Discharge Clinical Impression: Dehydration, Multiple falls, UTI Condition: Stable Disposition: HOME, SELF-CARE Additional Instructions: Patient's labs are consistent with dehydration REC: 1. Stop taking the Trivora (the patient is smoking and this will increase her risk of blood clots). 2. Hold the Hydrochlorothiazide and Lasix for the next 4 days.l 3. Continue other current medicines. 4. The patient does have MS and is a fall risk: take fall-risk precautions 5. Patient follow-up with her primary care doctor. 6. The ER for any problems. Referrals: LIU BROCK NP [Primary Care Provider] - Follow up tomorrow
--- NOTE | 2017-03-11 17:59 | EKG REPORT ---
SEVERITY:- ABNORMAL ECG - SINUS RHYTHM PROBABLE LEFT ATRIAL ABNORMALITY LEFT VENTRICULAR HYPERTROPHY BORDERLINE T ABNORMALITIES, INFERIOR LEADS : Confirmed by: Bonifacio Scott MD 11-Mar-2017 17:58:45
[2017-03-11 19:03] VITALS: BP 135/100
== END 2017-03-11 19:03 | disposition home or self-care (01) ==
LOC: ER 13:34
DX: Z04.3 Encounter for examination and observation following other accident (principal); W07.XXXA Fall from chair, initial encounter; Y93.89 Activity, other specified; N39.0 Urinary tract infection, site not specified; E86.0 Dehydration; G35 Multiple sclerosis; F17.210 Nicotine dependence, cigarettes, uncomplicated; Z88.1 Allergy status to other antibiotic agents; Z91.048 Other nonmedicinal substance allergy status
CPT/HCPCS: 93005; 99284; 96360; 36415; 87040; 87086; 80178; 84703; 85025; 85610; 80053; 81001; 82803; 83605; 71020; 70450; 76380; 93010; J7030

== ENCOUNTER 2017-03-13 15:47 | Emergency (ER) | payer MEDICAID ==
[2017-03-13 15:58] VITALS: BP 130/90
[2017-03-13] MEDS ORDERED: BENZTROPINE MESYLATE INJ 2 MG/2 ML AMPULE IM ONE (16:55)
--- NOTE | 2017-03-13 16:58 | ER Document Report ---
ED Medical Screen (RME) - General Chief Complaint: Other Stated Complaint: WEAKNESS Time Seen by Provider: 03/13/17 16:50 Mode of Arrival: Wheelchair Information source: Patient, [facility] Records, Outside Facility Records TRAVEL OUTSIDE OF THE [place] IN LAST 30 DAYS: No - HPI Onset: Other Notes: 03/13/17 16:56 Patient is a 46-year-old female with history of schizophrenia. Patient is on Haldol Decanoate. Patient has been seen here March 06, March 09, March 10, and March 11. Patient sent here from her assisted living facility for "acute exacerbation of tardive dyskinesia". Patient is a rather poor historian. Medical records from her recent emergency department visits have been reviewed. - Related Data Allergies/Adverse Reactions: Macrolide Antibiotics Allergy (Verified 03/11/17 13:55) yellow dye Allergy (Verified 03/11/17 13:55) ketolides Allergy (Uncoded 03/11/17 13:55) yellow dye non-tartrazine Allergy (Uncoded 03/11/17 13:55) Past Medical History - General Information source: Patient, [facility] Records - Social History Cigarette use (# per day): No Chew tobacco use (# tins/day): No Renal/ Medical History: Denies: Hx Peritoneal Dialysis Musculoskeltal Medical History: Reports Hx Multiple Sclerosis Psychiatric Medical History: Reports: Hx Schizophrenia Review of Systems - Review of Systems -: Yes All other systems reviewed and negative Physical Exam - Vital signs Vitals: Temp Pulse Resp BP Pulse Ox 97.5 F 95 18 130/90 H 100 03/13/17 15:55 03/13/17 15:55 03/13/17 15:55 03/13/17 15:55 03/13/17 15:55 Interpretation: Normal - General General appearance: Appears well - HEENT Head: Normocephalic, Atraumatic Mucous membranes: Dry Pharynx: Normal Neck: Normal - Respiratory Respiratory status: No respiratory distress Chest status: Nontender Breath sounds: Normal Chest palpation: Normal - Cardiovascular Rhythm: Regular Heart sounds: Normal auscultation Murmur: No - Abdominal Inspection: Normal Distension: No distension Bowel sounds: Normal Tenderness: Nontender Organomegaly: No organomegaly - Extremities General upper extremity: Normal inspection, Nontender, Normal color, Normal ROM , Normal temperature General lower extremity: Normal inspection, Nontender, Normal color, Normal ROM , Normal temperature, Normal weight bearing. No: Rafy's sign Course - Re-evaluation Re-evalutation: 03/13/17 17:42 Patient had a negative ED workup 2 days ago. I did not repeat any of that workup. Patient given IM shot of Cogentin. Would defer to her prescribing mental health provider for most appropriate long-term medication for presumed TD. No indication for further workup at this time. Will return back to her [facility]. - Vital Signs Vital signs: Temp Pulse Resp BP Pulse Ox 97.5 F 95 20 130/90 H 100 03/13/17 15:55 03/13/17 15:55 03/13/17 16:54 03/13/17 15:55 03/13/17 15:55 Doctor's Discharge - Discharge Clinical Impression: Tardive dyskinesia Condition: Good Disposition: HOME, SELF-CARE Instructions: Schizophrenia ([facility]) Additional Instructions: Follow-up with your mental health provider and your primary care doctor. Return to the emergency department if worse or for any other problems. Be sure to drink plenty of fluids.
== END 2017-03-13 21:12 | disposition home or self-care (01) ==
LOC: ER 15:47
DX: G24.01 Drug induced subacute dyskinesia (principal); R53.1 Weakness; F20.9 Schizophrenia, unspecified; G35 Multiple sclerosis
CPT/HCPCS: 99283; 96372; J0515

== ENCOUNTER 2017-03-13 22:17 | Emergency (ER) | payer MEDICAID ==
--- NOTE | 2017-03-14 02:42 | ER Document Report ---
ED Fall - General Chief Complaint: Fall Stated Complaint: FALL,NO COMPLAINT Time Seen by Provider: 03/14/17 02:09 Notes: Patient is a 46-year-old female who comes emergency department by EMS for chief complaint of a fall. Patient had been discharged from this facility after being evaluated this morning, reportedly as [facility] she fell onto the tile floor. Patient denies passing out , she denies any pain, she denies any current symptoms other than feeling hungry. Patient has not eaten all day. Past medical history of schizophrenia, HTN. TRAVEL OUTSIDE OF THE [place] IN LAST 30 DAYS: No - Related data Allergies/Adverse Reactions: Macrolide Antibiotics Allergy (Verified 03/13/17 22:31) yellow dye Allergy (Verified 03/13/17 22:31) ketolides Allergy (Uncoded 03/13/17 22:31) yellow dye non-tartrazine Allergy (Uncoded 03/13/17 22:31) Past Medical History - General Information source: Patient - Social History Smoking Status: Never Smoker Frequency of alcohol use: None Drug Abuse: None Lives with: [facility] Family History: None Renal/ Medical History: Denies: Hx Peritoneal Dialysis GI Medical History: Reports: Hx Gastroesophageal Reflux Disease Musculoskeltal Medical History: Reports Hx Multiple Sclerosis Psychiatric Medical History: Reports: Hx Bipolar Disorder, Hx Schizophrenia Review of Systems - Review of Systems Constitutional: No symptoms reported EENT: No symptoms reported Cardiovascular: No symptoms reported Respiratory: No symptoms reported Gastrointestinal: No symptoms reported Genitourinary: No symptoms reported Female Genitourinary: No symptoms reported Musculoskeletal: See HPI Skin: No symptoms reported Hematologic/Lymphatic: No symptoms reported Neurological/Psychological: See HPI Physical Exam - Vital signs Vitals: Temp Pulse Resp BP Pulse Ox 98.7 F 105 H 20 133/106 H 95 03/13/17 22:34 03/13/17 22:34 03/13/17 22:34 03/13/17 22:34 03/13/17 22:34 Interpretation: Normal - General General appearance: Appears well, Alert In distress: None - HEENT Head: Normocephalic, Atraumatic. No: Abrasions, Valdes's sign, Ecchymosis, Open wounds, Racoon's eyes, Tenderness Eyes: Normal Conjunctiva: Normal Extraocular movements intact: Yes Eyelashes: Normal Pupils: PERRL Ears: Normal External canal: Normal Tympanic membrane: Normal Sinus: Normal Nasal: Normal Mouth/Lips: Normal Mucous membranes: Dry - parched lips and dry tongue Pharynx: Normal Neck: Normal - Respiratory Respiratory status: No respiratory distress Chest status: Nontender Breath sounds: Normal Chest palpation: Normal - Cardiovascular Rhythm: Regular, Tachycardia - borderline Heart sounds: Normal auscultation, S1 appreciated, S2 appreciated Murmur: No - Abdominal Inspection: Normal Distension: No distension Bowel sounds: Normal Tenderness: Nontender Organomegaly: No organomegaly - Back Back: Normal, Nontender. No: Tender, Vertebra tenderness - Extremities General upper extremity: Normal inspection, Nontender, Normal color, Normal ROM , Normal temperature General lower extremity: Normal inspection, Nontender, Normal color, Normal ROM , Normal temperature, Normal weight bearing. No: Rafy's sign - Neurological Orientation: Disoriented to time, Disoriented to events. 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 No signs of distress. No physical signs of trauma, no pain complaints. No evidence of injury from fall based on examination. Patient has dry mucous membranes and tongue, mild tachycardia, states she is hungry and has not eaten all day. Patient was provided with food and fluids. After this her tachycardia resolved, she is resting comfortably. Patient will be discharged back to facility. - Vital Signs Vital signs: Temp Pulse Resp BP Pulse Ox 99 F 94 18 148/94 H 100 03/14/17 04:00 03/14/17 04:00 03/14/17 04:00 03/14/17 04:00 03/14/17 04:00 Discharge - Discharge Clinical Impression: Accidental fall Qualifiers: Encounter type: initial encounter Qualified Code(s): W19.XXXA - Unspecified fall, initial encounter Condition: Stable Disposition: HOME, SELF-CARE Additional Instructions: No concerning abnormalities are noted on the examination in regards to the fall today no concerning abnormalities are noted in regards to the fall today. Continue current medications. Return to the ED for any concerning symptoms. Forms: Elevated Blood Pressure
[2017-03-14 05:34] VITALS: BP 148/94
== END 2017-03-14 04:00 | disposition home or self-care (01) ==
LOC: ER 22:17
DX: Z04.3 Encounter for examination and observation following other accident (principal); R00.0 Tachycardia, unspecified; W18.30XA Fall on same level, unspecified, initial encounter; Y92.129 Unspecified place in nursing home as the place of occurrence of the external cause; K21.9 Gastro-esophageal reflux disease without esophagitis; G35 Multiple sclerosis; F20.9 Schizophrenia, unspecified
CPT/HCPCS: 99284

== ENCOUNTER 2017-03-19 09:58 | Emergency (ER) | payer MEDICAID ==
[2017-03-19 11:42] LABS: APPEARANCE,URINE TURBID; BILIRUBIN,URINE NEGATIVE (NEGATIVE); GLUCOSE, URINE NEGATIVE (NEGATIVE); KETONES,URINE TRACE mg/dL (NEGATIVE); LEUKOCYTE ESTERASE,URINE SMALL (NEGATIVE); NITRITE,URINE NEGATIVE (NEGATIVE); PROTEIN,URINE 30 mg/dL (NEGATIVE); URIC ACID CRYSTALS,URINE TOO NUMEROUS TO CNT /HPF; URINE SPECIFIC GRAVITY 1.015; UROBILINOGEN,URINE NEGATIVE mg/dL (<2.0)
--- NOTE | 2017-03-19 12:10 | ER Document Report ---
ED GI/ - General Chief Complaint: Problem with Urinary Catheter Stated Complaint: URINARY PROBLEMS Time Seen by Provider: 03/19/17 10:14 Mode of Arrival: Ambulatory Information source: Patient Notes: Pt is a schizophrenic female pt from [facility] with a history of chronic urinary retention with casper catheter in place who presents to the ER today for casper catheter being empty for 12 hours. She denies fever/ chills, blood in her urine, abd pain, flank pain. TRAVEL OUTSIDE OF THE [place] IN LAST 30 DAYS: No - Related Data Allergies/Adverse Reactions: Macrolide Antibiotics Allergy (Verified 03/13/17 22:31) yellow dye Allergy (Verified 03/13/17 22:31) ketolides Allergy (Uncoded 03/13/17 22:31) yellow dye non-tartrazine Allergy (Uncoded 03/13/17 22:31) Past Medical History - General Information source: Patient - Social History Smoking Status: Current Every Day Smoker Chew tobacco use (# tins/day): No Frequency of alcohol use: None Drug Abuse: None Family History: None Renal/ Medical History: Denies: Hx Peritoneal Dialysis GI Medical History: Reports: Hx Gastroesophageal Reflux Disease Musculoskeltal Medical History: Reports Hx Multiple Sclerosis Psychiatric Medical History: Reports: Hx Bipolar Disorder, Hx Schizophrenia Review of Systems - Review of Systems Constitutional: No symptoms reported EENT: No symptoms reported Cardiovascular: No symptoms reported Respiratory: No symptoms reported Gastrointestinal: No symptoms reported Genitourinary: See HPI Female Genitourinary: No symptoms reported Musculoskeletal: No symptoms reported Skin: No symptoms reported Hematologic/Lymphatic: No symptoms reported Neurological/Psychological: No symptoms reported Physical Exam - Notes Notes: PHYSICAL EXAMINATION: GENERAL: in no acute distress. HEAD: Atraumatic, normocephalic. EYES: Pupils equal round and reactive to light, extraocular movements intact, sclera anicteric, conjunctiva are normal. ENT: ear canals without erythema or foreign body, TMs pearly delacruz with good bony landmarks, nares patent, oropharynx clear without exudates. Moist mucous membranes. NECK: Normal range of motion, supple without lymphadenopathy LUNGS: CTAB and equal. No wheezes rales or rhonchi. HEART: Regular rate and rhythm without murmurs ABDOMEN: Soft, no tenderness. No guarding, no rebound BACK: no vertebral tenderness, normal ROM GI/: urine all over pants and bed, casper not correctly placed, no CVA tenderness EXTREMITIES: Normal range of motion, no pitting edema. No cyanosis. NEUROLOGICAL: speech garbled, normal for her, all other Cranial nerves grossly intact. Normal sensory/motor exams. SKIN: Warm, Dry, normal turgor, no rashes or lesions noted Course - Re-evaluation Re-evalutation: 03/19/17 12:40 casper was not correctly placed, pt is obviously urinating. replaced casper, will send back to [facility] with new casper. - Laboratory Laboratory results interpreted by me: 03/19/17 11:24 Urine Protein 30 H Urine Ketones TRACE H Ur Leukocyte Esterase SMALL H Discharge - Discharge Clinical Impression: Casper catheter problem Qualifiers: Encounter type: initial encounter Qualified Code(s): T83.9XXA - Unspecified complication of genitourinary prosthetic device, implant and graft, initial encounter Condition: Stable Disposition: HOME, SELF-CARE Additional Instructions: Return immediately for any new or worsening symptoms. Follow up with primary care provider, call tomorrow to make followup appointment.
[2017-03-19 13:00] VITALS: BP 118/73
== END 2017-03-19 13:17 | disposition home or self-care (01) ==
LOC: ER 09:58
DX: T83.9XXA Unspecified complication of genitourinary prosthetic device, implant and graft, initial encounter (principal); F20.9 Schizophrenia, unspecified; F17.200 Nicotine dependence, unspecified, uncomplicated; F31.9 Bipolar disorder, unspecified
CPT/HCPCS: 51702; 81001; 99284

== ENCOUNTER 2017-03-20 12:17 | Emergency (ER) | payer MEDICAID ==
--- NOTE | 2017-03-20 13:17 | ER Document Report ---
ED General - General Stated Complaint: CATHETER PROBLEMS Time Seen by Provider: 03/20/17 12:38 Mode of Arrival: Stretcher Cannot obtain history due to: Other - Limited by chronic schizophrenia TRAVEL OUTSIDE OF THE [place] IN LAST 30 DAYS: No - HPI Notes: 46-year-old female well-known to the emergency department with history of chronic schizophrenia presents with vaginal bleeding by report. Patient does not give me any history but denies any new pelvic pain. Apparently she has been having some bleeding. She was seen yesterday for a Estrada malfunction which was replaced at that point. No other history is available. - Related Data Allergies/Adverse Reactions: Macrolide Antibiotics Allergy (Verified 03/13/17 22:31) yellow dye Allergy (Verified 03/13/17 22:31) ketolides Allergy (Uncoded 03/13/17 22:31) yellow dye non-tartrazine Allergy (Uncoded 03/13/17 22:31) Past Medical History - Social History Smoking Status: Unknown if Ever Smoked Lives with: [facility] Family History: None Renal/ Medical History: Denies: Hx Peritoneal Dialysis GI Medical History: Reports: Hx Gastroesophageal Reflux Disease Musculoskeltal Medical History: Reports Hx Multiple Sclerosis Psychiatric Medical History: Reports: Hx Bipolar Disorder, Hx Schizophrenia Review of Systems - Review of Systems -: Yes ROS unobtainable due to patient's medical condition - Thought process abnormality, denies specifically fever or new abdominal jessi Physical Exam - Vital signs Vitals: Temp Pulse Resp BP Pulse Ox 98.1 F 101 H 16 136/82 H 45 L 03/20/17 12:28 03/20/17 12:28 03/20/17 12:28 03/20/17 12:28 03/20/17 12:28 Interpretation: Tachycardic - 104 Notes: GENERAL: VS as per nursing doc. Well-appearing, well-nourished and in no acute distress. HEAD: Atraumatic, normocephalic. ENT: Nares patent, oropharynx clear without exudates, somewhat dry mucous membranes. NECK: Supple LUNGS: Coarse Bilaterally HEART: Regular rate and rhythm, heart 98 on recheck ABDOMEN/: Soft, non-tender; small amount of old blood noted at the vaginal region. There is no active bleeding at all. Estrada is draining well without hematuria. Estrada appears in place without suprapubic distention, good urine flow and no visible with Estrada in urethra BACK: No CVA tenderness. NEUROLOGICAL: No gross focal deficit PSYCH: Normal mood, normal affect. SKIN: Warm, dry. Active bleeding Course - Re-evaluation Re-evalutation: 03/20/17 13:17 Patient probably did suffer some trauma at some point either by pulling on it or with insertion yesterday. She has no hematuria now. I do not see any active bleeding, if it was from the urethra, treatment would be with a Estrada catheter which she already has in place. - Vital Signs Vital signs: Temp Pulse Resp BP Pulse Ox 98.0 F 96 17 132/78 H 100 03/20/17 13:40 03/20/17 13:40 03/20/17 13:40 03/20/17 13:40 03/20/17 13:40 Discharge - Discharge Clinical Impression: Estrada catheter problem Qualifiers: Encounter type: initial encounter Qualified Code(s): T83.9XXA - Unspecified complication of genitourinary prosthetic device, implant and graft, initial encounter Condition: Good Disposition: [facility] Additional Instructions: Please return for any problems or concerns. Currently there is no active bleeding noted and Estrada is draining well. Referrals: LIU BROCK PEAR PICKER [Primary Care Provider] - Follow up in 1 week
[2017-03-20 13:49] VITALS: BP 132/78
== END 2017-03-20 13:40 ==
LOC: ER 12:17
DX: Z46.6 Encounter for fitting and adjustment of urinary device (principal); N93.9 Abnormal uterine and vaginal bleeding, unspecified; G35 Multiple sclerosis; F20.5 Residual schizophrenia
CPT/HCPCS: 99283

== ENCOUNTER 2017-03-29 11:25 | Emergency (ER) | payer MEDICAID ==
--- NOTE | 2017-03-29 11:37 | ER Document Report ---
ED GI/ - General Chief Complaint: Problem with Urinary Catheter Stated Complaint: CATHETER PROBLEM Notes: Patient is a 46-year-old female, past medical history chronic urinary retention , chronic indwelling Casper, presents with urinary retention after Casper was removed last night. She is unable to urinate. She is unsure why her Casper was removed at [facility] last night. Denies fevers, nausea, vomiting or flank pain. TRAVEL OUTSIDE OF THE [place] IN LAST 30 DAYS: No - Related Data Allergies/Adverse Reactions: Macrolide Antibiotics Allergy (Verified 03/29/17 11:56) yellow dye Allergy (Verified 03/29/17 11:56) ketolides Allergy (Uncoded 03/29/17 11:56) yellow dye non-tartrazine Allergy (Uncoded 03/29/17 11:56) Home Medications: Current Home Medications Baclofen [Baclofen 10 mg Tablet] 10 mg PO BID 03/29/17 [History] Benztropine Mesylate [Benztropine Mesylate 2 mg Tablet] 2 mg PO BID 03/29/17 [ History] Cholecalciferol (Vitamin D3) [Vitamin D3 2000 unit Tablet] 2,000 unit PO DAILY 03/29/17 [History] Divalproex Sodium [Divalproex Sodium ER] 500 mg PO DAILY 03/29/17 [History] Furosemide 10 mg PO BID 03/29/17 [History] Gabapentin 300 mg PO TID 03/29/17 [History] Haloperidol Decanoate [Haldol Decanoate Inj 100 Mg/Ml Vial] 100 mg IM [id number] [History] Hydrochlorothiazide 12.5 mg PO DAILY 03/29/17 [History] Ivermectin 21 mg PO ONCE PRN 03/29/17 [History] Lactulose [Constulose 10 gm/15 mL Oral Solution] 10 gm PO DAILY 03/29/17 [ History] Meloxicam 7.5 mg PO DAILY 03/29/17 [History] Omeprazole 40 mg PO DAILY 03/29/17 [History] Ondansetron HCl 4 mg PO TID 03/29/17 [History] Terbinafine HCl 250 mg PO DAILY 03/29/17 [History] Tramadol HCl 50 mg PO TID 03/29/17 [History] Past Medical History - General Information source: Patient - Social History Smoking Status: Never Smoker Family History: None Renal/ Medical History: Denies: Hx Peritoneal Dialysis GI Medical History: Reports: Hx Gastroesophageal Reflux Disease Musculoskeltal Medical History: Reports Hx Multiple Sclerosis Psychiatric Medical History: Reports: Hx Bipolar Disorder, Hx Schizophrenia - Immunizations Hx Diphtheria, Pertussis, Tetanus Vaccination: Yes Review of Systems - Review of Systems Notes: REVIEW OF SYSTEMS: CONSTITUTIONAL: -fevers, -chills EENT: -eye pain, -difficulty swallowing, -nasal congestion CARDIOVASCULAR:-chest pain, -syncope. RESPIRATORY: -cough, -SOB GASTROINTESTINAL: -abdominal pain, -nausea, -vomiting, -diarrhea GENITOURINARY: -dysuria, -hematuria, +urinary retention MUSCULOSKELETAL: -back pain, -neck pain SKIN: -rash or skin lesions. HEMATOLOGIC: -easy bruising or bleeding. LYMPHATIC: -swollen, enlarged glands. NEUROLOGICAL: -altered mental status or loss of consciousness, -headache, - neurologic symptoms PSYCHIATRIC: -anxiety, -depression. ALL OTHER SYSTEMS REVIEWED AND NEGATIVE. Physical Exam - Vital signs Vitals: Temp Pulse Resp BP Pulse Ox 98.6 F 95 18 112/66 96 03/29/17 11:35 03/29/17 11:35 03/29/17 11:35 03/29/17 11:35 03/29/17 11:35 - Notes Notes: PHYSICAL EXAMINATION: GENERAL: Well-appearing, well-nourished and in no acute distress. HEAD: Atraumatic, normocephalic. EYES: Pupils equal round and reactive to light, extraocular movements intact, sclera anicteric, conjunctiva are normal. ENT: nares patent, oropharynx clear without exudates. Moist mucous membranes. NECK: Normal range of motion, supple without lymphadenopathy LUNGS: Breath sounds clear to auscultation bilaterally and equal. No wheezes rales or rhonchi. HEART: Regular rate and rhythm without murmurs ABDOMEN: Soft, nontender, normoactive bowel sounds. No guarding, no rebound. No masses appreciated. EXTREMITIES: Normal range of motion, no pitting or edema. No cyanosis. NEUROLOGICAL: Cranial nerves grossly intact. Normal speech, normal gait. Normal sensory and motor exams. PSYCH: Normal mood, normal affect. SKIN: Warm, Dry, normal turgor, no rashes or lesions noted. Course - Re-evaluation Re-evalutation: Her white Casper was removed. Casper replaced with return of yellow urine. No signs of pyelonephritis or sepsis. Will discharge patient back to [facility] with follow-up with primary care physician and urology. - Vital Signs Vital signs: Temp Pulse Resp BP Pulse Ox 98.6 F 95 18 112/66 96 03/29/17 11:35 03/29/17 11:35 03/29/17 11:35 03/29/17 11:35 03/29/17 11:35 Discharge - Discharge Clinical Impression: Retention of urine Casper catheter problem Qualifiers: Encounter type: initial encounter Qualified Code(s): T83.9XXA - Unspecified complication of genitourinary prosthetic device, implant and graft, initial encounter Condition: Stable Disposition: HOME, SELF-CARE Additional Instructions: Your casper was replaced today.
[2017-03-29 15:26] VITALS: BP 122/78
== END 2017-03-29 15:27 | disposition home or self-care (01) ==
LOC: ER 11:25
DX: R33.9 Retention of urine, unspecified (principal)
CPT/HCPCS: 51702; 99283

== ENCOUNTER 2017-06-11 14:59 | Observation (INO) | payer MEDICAID ==
[2017-06-11] MEDS ORDERED: NORMAL SALINE 1000 ML 1,000 ML IV ONE (15:50)
--- NOTE | 2017-06-11 15:52 | ER Document Report ---
ED Dizziness/Weakness - General Chief Complaint: Altered Mental Status Stated Complaint: ALTERED MENTAL STATUS Time Seen by Provider: 06/11/17 15:30 Mode of Arrival: Medic Notes: She reportedly with decreased mental status at nursing facility. Patient has long standing complicated medical problems. Was reportedly not at her baseline mental status. EMS was called. No fever. Patient not wanting to communicate but is following commands per TRAVEL OUTSIDE OF THE [place] IN LAST 30 DAYS: No - Related Data Allergies/Adverse Reactions: Macrolide Antibiotics Allergy (Verified 03/29/17 11:56) yellow dye Allergy (Verified 03/29/17 11:56) ketolides Allergy (Uncoded 03/29/17 11:56) yellow dye non-tartrazine Allergy (Uncoded 03/29/17 11:56) Past Medical History - General Information source: Emergency Med Personnel, Outside Facility Records - Social History Smoking Status: Unknown if Ever Smoked Family History: None Renal/ Medical History: Denies: Hx Peritoneal Dialysis GI Medical History: Reports: Hx Gastroesophageal Reflux Disease Musculoskeltal Medical History: Reports Hx Multiple Sclerosis Psychiatric Medical History: Reports: Hx Bipolar Disorder, Hx Schizophrenia - Immunizations Hx Diphtheria, Pertussis, Tetanus Vaccination: Yes Review of Systems - Review of Systems -: Yes ROS unobtainable due to patient's medical condition Physical Exam - Vital signs Vitals: Resp 12 06/11/17 15:09 Interpretation: Normal - General General appearance: Appears well, Alert, Lethargic In distress: None - HEENT Head: Normocephalic, Atraumatic Eyes: Normal Pupils: PERRL Mucous membranes: Dry - Respiratory Respiratory status: No respiratory distress Chest status: Nontender Breath sounds: Normal Chest palpation: Normal - Cardiovascular Rhythm: Regular Heart sounds: Normal auscultation Murmur: No - Abdominal Inspection: Normal Distension: No distension Bowel sounds: Normal Tenderness: Nontender Organomegaly: No organomegaly - Back Back: Normal, Nontender - Extremities General upper extremity: Normal inspection, Nontender, Normal color, Normal ROM , Normal temperature General lower extremity: Normal inspection, Nontender, Normal color, Normal ROM , Normal temperature, Normal weight bearing. No: Rafy's sign - Neurological Neuro grossly intact: Yes Cognition: Normal Orientation: AAOx4, Disoriented to person, Disoriented to place, Disoriented to time [place] Coma Scale Eye Opening: Spontaneous [place] Coma Scale Verbal: Oriented Cricket Coma Scale Motor: Obeys Commands [place] Coma Scale Total: 15 Speech: Normal Motor strength normal: LUE, RUE, LLE, RLE Sensory: Normal - Psychological Associated symptoms: Normal affect, Normal mood - Skin Skin Temperature: Warm Skin Moisture: Dry Skin Color: Normal Course - Re-evaluation Re-evalutation: 06/11/17 18:13 Patient has obvious urinary tract infection. Presented here with delirium. Appeared dry on physical exam BUN and creatinine are okay at this time. Will like to place in observation and give her hydration and see if her delirium clears with antibiotics and fluids. Consulted hospitalist. Dr. Parrish will except at this time. - Vital Signs Vital signs: Temp Pulse Resp BP Pulse Ox 98.1 F 12 101/74 06/11/17 15:12 06/11/17 15:16 06/11/17 15:16 - Laboratory Result Diagrams: 06/11/17 16:30 06/11/17 16:30 Laboratory results interpreted by me: 06/11/17 06/11/17 06/11/17 16:30 16:30 17:00 RDW 14.4 H Chloride 96 L Carbon Dioxide 31 H Calcium 10.3 H Urine Protein 100 H Urine Blood SMALL H Urine Nitrite POSITIVE H Ur Leukocyte Esterase MODERATE H - Diagnostic Test Radiology reviewed: Reports reviewed - EKG Interpretation by Me EKG shows normal: Sinus rhythm, [place], Intervals, QRS Complexes, ST-T Waves Rate: Normal Discharge - Discharge Clinical Impression: Acute UTI, Delirium Condition: Good Disposition: ADMITTED OBSERVATION Admitting Provider: Hospitalist - Dr. Parrish Unit Admitted: Medical Floor
--- NOTE | 2017-06-11 16:22 | RADIOLOGY REPORT (SQ) ---
EXAM DESCRIPTION: CT HEAD WITHOUT COMPLETED DATE/TIME: 06/11/2017 4:10 pm REASON FOR STUDY: altered mental status COMPARISON: 03/11/2017 TECHNIQUE: Axial images acquired through the brain without intravenous contrast. Images reviewed wi th bone, brain and subdural windows. Images stored on PACS. All CT scanners at this facility use dose modulation, iterative reconstruction, and/or weight based d osing when appropriate to reduce radiation dose to as low as reasonably achievable (ALARA). [facility]: Dose Right [facility]: CareDose [facility]: Dose Right [facility]: Teradose 4D [facility]: Smart Ziliko RADIATION DOSE: Up-to-date CT equipment and radiation dose reduction techniques were employed. CTDIv ol: 64.6 mGy. DLP: 1034 mGy-cm. mGy. LIMITATIONS: None. FINDINGS: VENTRICLES: Normal size and contour. CEREBRUM: No masses. No hemorrhage. No midline shift. No evidence for acute infarction. Normal gra y/white matter differentiation. No areas of low density in the white matter. CEREBELLUM: No masses. No hemorrhage. No alteration of density. No evidence for acute infarction. EXTRAAXIAL SPACES: No fluid collections. No masses. ORBITS AND GLOBE: No intra- or extraconal masses. Normal contour of globe without masses. CALVARIUM: No fracture. PARANASAL SINUSES: No fluid or mucosal thickening. SOFT TISSUES: Stable sebaceous cyst right posterior scalp. No hematoma. OTHER: No other significant finding. IMPRESSION: NO ACUTE INTRACRANIAL PROCESS. NO SIGNIFICANT CHANGE FROM PRIOR STUDY. EVIDENCE OF ACUTE STROKE: NO. COMMENT: Quality ID # [id number]: Final reports with documentation of one or more dose reduction techniques (e.g., Automated exposure control, adjustment of the mA and/or kV according to patient size, use of iterative reconstruction technique) TECHNICAL DOCUMENTATION: JOB ID: [id number]- All Rights Reserved
[2017-06-11 16:47] LABS: ABSOLUTE BASOPHILS # (AUTO) 0.1 10^3/uL (0.0-0.2); ABSOLUTE EOSINOPHILS # (AUTO) 0.1 10^3/uL (0.0-0.6); ABSOLUTE LYMPHOCYTES (AUTO) 2.8 10^3/uL (0.5-4.7); ABSOLUTE MONOCYTES (AUTO) 0.9 10^3/uL (0.1-1.4); BASOPHILS % (AUTO) 0.6 % (0-2); EOSINOPHILS % (AUTO) 0.6 % (0-6); HEMATOCRIT 40.7 % (36.0-47.0); HEMOGLOBIN 13.9 g/dL (12.0-15.5); LYMPHOCYTES % (AUTO) 28.9 % (13-45); MEAN CORPUSCULAR HEMOGLOBIN 31.4 pg (27.0-33.4); MEAN CORPUSCULAR HGB CONC 34.1 g/dL (32.0-36.0); MEAN CORPUSCULAR VOLUME 92 fl (80-97); MONOCYTES % (AUTO) 9.1 % (3-13); RED BLOOD COUNT 4.42 10^6/uL (3.72-5.28); RED CELL DISTRIBUTION WIDTH 14.4 % (11.5-14.0); SEGMENTED NEUTROPHILS % (AUTO) 60.8 % (42-78); WHITE BLOOD COUNT 9.9 10^3/uL (4.0-10.5)
--- NOTE | 2017-06-11 16:55 | RADIOLOGY REPORT (SQ) ---
EXAM DESCRIPTION: CHEST PA/LAT COMPLETED DATE/TIME: 06/11/2017 4:46 pm REASON FOR STUDY: Altered mental status, shortness of breath COMPARISON: 03/11/2017 EXAM PARAMETERS: NUMBER OF VIEWS: two views TECHNIQUE: Digital Frontal and Lateral radiographic views of the chest acquired. RADIATION DOSE: NA LIMITATIONS: none FINDINGS: LUNGS AND PLEURA: No opacities, masses or pneumothorax. No pleural effusion. MEDIASTINUM AND HILAR STRUCTURES: No masses or contour abnormalities. HEART AND VASCULAR STRUCTURES: Heart normal size. No evidence for failure. BONES: No acute findings. HARDWARE: None in the chest. OTHER: No other significant finding. IMPRESSION: NO ACUTE CARDIOPULMONARY PROCESS. NO SIGNIFICANT CHANGE FROM PRIOR STUDY. TECHNICAL DOCUMENTATION: JOB ID: [id number] [employer]- All Rights Reserved
[2017-06-11 17:06] LABS: ALANINE AMINOTRANSFERASE 22 U/L (9-52); ALBUMIN 4.2 g/dL (3.5-5.0); ALKALINE PHOSPHATASE 86 U/L (38-126); ANION GAP 16 (5-19); ASPARTATE AMINO TRANSFERASE 24 U/L (14-36); BILIRUBIN,DIRECT 0.4 mg/dL (0.0-0.4); BILIRUBIN,TOTAL 0.5 mg/dL (0.2-1.3); BLOOD UREA NITROGEN 17 mg/dL (7-20); CALCIUM 10.3 mg/dL (8.4-10.2); CARBON DIOXIDE 31 mmol/L (22-30); CHLORIDE 96 mmol/L (98-107); CREATINE KINASE 98 U/L (30-135); CREATININE RESULT 0.79 mg/dL (0.52-1.25); GLUCOSE 87 mg/dL (75-110); POTASSIUM 3.8 mmol/L (3.6-5.0); SODIUM 142.5 mmol/L (137-145); TOTAL PROTEIN 7.8 g/dL (6.3-8.2)
[2017-06-11 17:18] LABS: CREATINE KINASE MB 2.02 ng/mL (<4.55)
[2017-06-11 17:24] LABS: TROPONIN I < 0.012 ng/mL
[2017-06-11 17:46] LABS: APPEARANCE,URINE TURBID; BILIRUBIN,URINE NEGATIVE (NEGATIVE); GLUCOSE, URINE NEGATIVE (NEGATIVE); KETONES,URINE NEGATIVE (NEGATIVE); LEUKOCYTE ESTERASE,URINE MODERATE (NEGATIVE); NITRITE,URINE POSITIVE (NEGATIVE); PROTEIN,URINE 100 mg/dL (NEGATIVE); URINE SPECIFIC GRAVITY 1.011; UROBILINOGEN,URINE NEGATIVE mg/dL (<2.0)
[2017-06-11] MEDS ORDERED: CEFTRIAXONE INJ 1000 MG VIAL IV ONE (18:05)
--- NOTE | 2017-06-11 18:15 | EKG REPORT ---
SEVERITY:- BORDERLINE ECG - SINUS RHYTHM PROBABLE LEFT ATRIAL ABNORMALITY : Confirmed by: Bonifacio Scott MD 11-Jun-2017 18:14:58
[2017-06-11] MEDS ORDERED: ACETAMINOPHEN 325 MG TABLET PO PRN (18:23)
[2017-06-11] MEDS ORDERED: ONDANSETRON 4 MG TAB.RAPDIS PO PRN (18:23)
--- NOTE | 2017-06-11 18:40 | PDOC H&P ---
History of Present Illness Admission Date/PCP: 06/11/17 18:22 Patient complains of: Weakness History of Present Illness: TRISTA SMITH is a 46 year old female presents to the ER with complaint of weakness. Pt states that she has been weak for several days. Pt states that she does not know all of her medical problems. Pt states that she is not sure of her medical problems. Pt denies chest pain, SOB, or fever. Past Medical History Medical History: Other - Pt does not know medical problems. GI Medical History: Reports: Gastroesophageal Reflux Disease Psychiatric Medical History: Reports: Bipolar Disorder Past Surgical History Past Surgical History: Reports: Other - Pt not sure of medical history. Social History Smoking Status: Unknown if Ever Smoked Family History Family History: None Parental Family History Reviewed: No Children Family History Reviewed: No Sibling(s) Family History Reviewed.: No - Pt states that she does not know history. Medication/Allergy Home Medications: Baclofen [Baclofen 10 mg Tablet] 10 mg PO BID 03/29/17 Benztropine Mesylate [Benztropine Mesylate 2 mg Tablet] 2 mg PO BID 03/29/17 Cholecalciferol (Vitamin D3) [Vitamin D3 2000 unit Tablet] 2,000 unit PO DAILY 03/29/17 Divalproex Sodium [Divalproex Sodium ER] 500 mg PO DAILY 03/29/17 Furosemide 10 mg PO BID 03/29/17 Gabapentin 300 mg PO TID 03/29/17 Haloperidol Decanoate [Haldol Decanoate Inj 100 Mg/Ml Vial] 100 mg IM [id number] Hydrochlorothiazide 12.5 mg PO DAILY 03/29/17 Ivermectin 21 mg PO ONCE PRN 03/29/17 Lactulose [Constulose 10 gm/15 mL Oral Solution] 10 gm PO DAILY 03/29/17 Meloxicam 7.5 mg PO DAILY 03/29/17 Omeprazole 40 mg PO DAILY 03/29/17 Ondansetron HCl 4 mg PO TID 03/29/17 Terbinafine HCl 250 mg PO DAILY 03/29/17 Tramadol HCl 50 mg PO TID 03/29/17 Allergies/Adverse Reactions: Macrolide Antibiotics Allergy (Verified 03/29/17 11:56) yellow dye Allergy (Verified 03/29/17 11:56) ketolides Allergy (Uncoded 03/29/17 11:56) yellow dye non-tartrazine Allergy (Uncoded 03/29/17 11:56) Review of Systems ROS unobtainable: Other Constitutional: PRESENT: weakness Eyes: ABSENT: visual disturbances Ears: ABSENT: hearing changes Cardiovascular: ABSENT: chest pain, dyspnea on exertion, edema, orthropnea, palpitations Respiratory: ABSENT: cough, hemoptysis Gastrointestinal: ABSENT: abdominal pain, constipation, diarrhea, hematemesis, hematochezia, nausea, vomiting Genitourinary: ABSENT: dysuria, hematuria Integumentary: ABSENT: rash, wounds Physical Exam Vital Signs: Temp Pulse Resp BP Pulse Ox 98.1 F 12 101/74 06/11/17 15:12 06/11/17 15:16 06/11/17 15:16 General appearance: PRESENT: no acute distress, well-developed, well-nourished, other - obese, following commands Head exam: PRESENT: atraumatic, normocephalic Eye exam: PRESENT: conjunctiva pink, EOMI. ABSENT: scleral icterus Mouth exam: PRESENT: dry mucosa Neck exam: ABSENT: carotid bruit, JVD, lymphadenopathy, thyromegaly Respiratory exam: PRESENT: clear to auscultation kevin. ABSENT: rales, rhonchi, wheezes Cardiovascular exam: PRESENT: RRR. ABSENT: diastolic murmur, rubs, systolic murmur Pulses: PRESENT: normal dorsalis pedis pul Vascular exam: PRESENT: normal capillary refill GI/Abdominal exam: PRESENT: normal bowel sounds, soft. ABSENT: distended, guarding, mass, organolmegaly, rebound, tenderness Rectal exam: PRESENT: deferred Neurological exam: PRESENT: alert, oriented to person Psychiatric exam: PRESENT: flat affect. ABSENT: homicidal ideation, suicidal ideation Skin exam: PRESENT: dry, intact, warm. ABSENT: cyanosis, rash Results Impressions: Head CT 06/11/17 15:51 IMPRESSION: NO ACUTE INTRACRANIAL PROCESS. NO SIGNIFICANT CHANGE FROM PRIOR STUDY. EVIDENCE OF ACUTE STROKE: NO. Chest X-Ray 06/11/17 16:14 IMPRESSION: NO ACUTE CARDIOPULMONARY PROCESS. NO SIGNIFICANT CHANGE FROM PRIOR STUDY. Assessment & Plan - Diagnosis (1) Acute cystitis Is this a current diagnosis for this admission?: Yes Plan: Urine culture pending. Will place pt on Rocephin. (2) Delirium Is this a current diagnosis for this admission?: Yes Plan: Possibly related to Acute Cystitis: Will place pt on Rocephin. Pt was follow questions but not sure of pt's baseline. (3) Multiple sclerosis Is this a current diagnosis for this admission?: Yes Plan: Will verify home medications and continue. (4) Schizophrenia Is this a current diagnosis for this admission?: Yes Plan: Will continue home medications once known. (5) DVT prophylaxis Is this a current diagnosis for this admission?: Yes Plan: SCDs - Time Time Spent: 30 to 50 Minutes Anticipated discharge: SNF Within: within 48 hours
[2017-06-11] MEDS: GABAPENTIN 300 MG CAPSULE PO SCH (23:49)
[2017-06-11] MEDS: NORMAL SALINE 1000 ML 1,000 ML IV PRN (23:50)
[2017-06-12] MEDS: GABAPENTIN 300 MG CAPSULE PO SCH ×3 (05:34→21:49)
[2017-06-12] MEDS: LANSOPRAZOLE 30 MG TAB.RAP.DR PO SCH (05:34)
[2017-06-12 07:07] LABS: ABSOLUTE EOSINOPHILS # (AUTO) 0.1 10^3/uL (0.0-0.6); ABSOLUTE LYMPHOCYTES (AUTO) 2.3 10^3/uL (0.5-4.7); ABSOLUTE MONOCYTES (AUTO) 0.7 10^3/uL (0.1-1.4); ABSOLUTE NEUT (AUTO) 2.6 10^3/uL (1.7-8.2); BASOPHILS % (AUTO) 0.7 % (0-2); EOSINOPHILS % (AUTO) 1.6 % (0-6); HEMATOCRIT 33.6 % (36.0-47.0); HGB HCT DIFFERENCE 1.8; LYMPHOCYTES % (AUTO) 39.8 % (13-45); MEAN CORPUSCULAR HEMOGLOBIN 32.1 pg (27.0-33.4); MEAN CORPUSCULAR HGB CONC 35.2 g/dL (32.0-36.0); MEAN CORPUSCULAR VOLUME 91 fl (80-97); MONOCYTES % (AUTO) 12.8 % (3-13); RED BLOOD COUNT 3.68 10^6/uL (3.72-5.28); RED CELL DISTRIBUTION WIDTH 14.3 % (11.5-14.0); SEGMENTED NEUTROPHILS % (AUTO) 45.1 % (42-78); WHITE BLOOD COUNT 5.8 10^3/uL (4.0-10.5)
[2017-06-12 07:13] LABS: HEMOGLOBIN 11.8 g/dL (12.0-15.5)
[2017-06-12 07:26] LABS: BLOOD UREA NITROGEN 13 mg/dL (7-20); CALCIUM 9.4 mg/dL (8.4-10.2); CREATININE RESULT 0.65 mg/dL (0.52-1.25); GLUCOSE 85 mg/dL (75-110)
[2017-06-12 07:27] LABS: ALANINE AMINOTRANSFERASE 26 U/L (9-52); ALBUMIN 3.2 g/dL (3.5-5.0); ALKALINE PHOSPHATASE 66 U/L (38-126); ANION GAP 8 (5-19); ASPARTATE AMINO TRANSFERASE 22 U/L (14-36); BILIRUBIN,DIRECT 0.4 mg/dL (0.0-0.4); BILIRUBIN,TOTAL 0.5 mg/dL (0.2-1.3); CARBON DIOXIDE 30 mmol/L (22-30); CHLORIDE 103 mmol/L (98-107); POTASSIUM 3.4 mmol/L (3.6-5.0); SODIUM 140.8 mmol/L (137-145); TOTAL PROTEIN 6.1 g/dL (6.3-8.2)
[2017-06-12 07:53] LABS: THYROID STIMULATING HORMONE 5.96 uIU/mL (0.47-4.68)
[2017-06-12] MEDS ORDERED: LEVONORGESTREL ETHIN ESTRADIOL PO SCH (10:00)
[2017-06-12] MEDS ORDERED: (PENDING PHARMACY ID) (Naproxen [Naprosyn] 500 MG) PO SCH (10:00)
[2017-06-12] MEDS ORDERED: MELOXICAM 7.5 MG TABLET PO SCH (10:00)
[2017-06-12] MEDS ORDERED: (PENDING PHARMACY ID) (Cholecalciferol (Vitamin D3) [Vitamin D3 2000 Unit Tablet] 2,000 UN PO SCH (10:00)
[2017-06-12] MEDS ORDERED: (PENDING PHARMACY ID) (Benztropine Mesylate [Benztropine Mesylate 2 Mg Tablet] 2 MG) PO SCH ×2 (10:00)
[2017-06-12] MEDS ORDERED: DIVALPROEX SODIUM 500 MG TAB.SR.24H PO SCH (10:00)
[2017-06-12] MEDS ORDERED: CHOLECALCIFEROL (D3) 1,000 UNIT TABLET PO SCH (10:00)
[2017-06-12] MEDS ORDERED: GABAPENTIN 300 MG CAPSULE PO SCH ×2 (10:00→14:00)
[2017-06-12] MEDS: CEFTRIAXONE 1 GM/D5W RTU 1 GM/50 ML RTUPB IV SCH (10:09)
[2017-06-12] MEDS: CHOLECALCIFEROL (D3) 1,000 UNIT TABLET PO SCH (10:10)
[2017-06-12] MEDS: TERBINAFINE HCL 250 MG TABLET PO SCH (10:10)
[2017-06-12] MEDS: BENZTROPINE MESYLATE 1 MG TABLET PO SCH ×2 (10:10→17:46)
[2017-06-12] MEDS: NAPROXEN 250 MG TABLET PO SCH ×2 (10:10→17:46)
[2017-06-12] MEDS: DIVALPROEX SODIUM 500 MG TAB.SR.24H PO SCH (10:11)
[2017-06-12] MEDS: TRAMADOL HCL 50 MG TABLET PO SCH ×3 (10:11→17:45)
[2017-06-12] MEDS: BACLOFEN 10 MG TABLET PO SCH ×2 (10:12→17:45)
[2017-06-12] MEDS ORDERED: TRAMADOL HCL 50 MG TABLET PO SCH (14:00)
--- NOTE | 2017-06-12 18:23 | PDOC PROGRESS REPORT ---
Subjective Progress Note for:: 06/12/17 Subjective:: Patient admitted for UTI. Urine currently growing gram-negative rods. Patient currently on ceftriaxone. Patient stating that she did not sleep well last night. Patient asking when she will be able to go home. Patient evaluated by speech therapy who recommended pured diet with thin liquids has patient has severe tardive dyskinesia. Physical Exam Vital Signs: Temp Pulse Resp BP Pulse Ox 98.8 F 96 16 107/74 99 06/12/17 16:23 06/12/17 16:23 06/12/17 16:23 06/12/17 16:23 06/12/17 16:23 Intake & Output 06/11/17 06/12/17 06/13/17 06:59 06:59 06:59 Intake Total 800 240 Balance 800 240 Weight 99 kg General appearance: PRESENT: no acute distress, disheveled Eye exam: PRESENT: EOMI Neck exam: ABSENT: JVD, lymphadenopathy Respiratory exam: PRESENT: clear to auscultation kevin, unlabored. ABSENT: tachypnea, wheezes Cardiovascular exam: PRESENT: RRR, +S1, +S2 GI/Abdominal exam: PRESENT: normal bowel sounds, soft. ABSENT: tenderness Rectal exam: PRESENT: deferred Extremities exam: ABSENT: pedal edema, tenderness Neurological exam: PRESENT: alert, altered, oriented to person, oriented to place, oriented to time, oriented to situation Psychiatric exam: PRESENT: flat affect, other - Dyskinesia with crusting of the tongue and uncontrolled movements of the face feet Skin exam: PRESENT: intact, warm Results Laboratory Results: 06/12/17 06:38 06/12/17 06:38 06/11/17 06/12/17 06/12/17 18:40 06:38 06:38 WBC 5.8 RBC 3.68 L Hgb 11.8 L D Hct 33.6 L MCV 91 MCH 32.1 MCHC 35.2 RDW 14.3 H Plt Count 209 Seg Neutrophils % 45.1 Lymphocytes % 39.8 Monocytes % 12.8 Eosinophils % 1.6 Basophils % 0.7 Absolute Neutrophils 2.6 Absolute Lymphocytes 2.3 Absolute Monocytes 0.7 Absolute Eosinophils 0.1 Absolute Basophils 0.0 Sodium 140.8 Potassium 3.4 L Chloride 103 Carbon Dioxide 30 Anion Gap 8 BUN 13 Creatinine 0.65 Est GFR ( Amer) > 60 Est GFR (Non-Af Amer) > 60 Glucose 85 Lactic Acid 1.1 Calcium 9.4 Total Bilirubin 0.5 AST 22 ALT 26 Alkaline Phosphatase 66 Total Protein 6.1 L Albumin 3.2 L TSH Free T4 06/12/17 06:38 WBC RBC Hgb Hct MCV MCH MCHC RDW Plt Count Seg Neutrophils % Lymphocytes % Monocytes % Eosinophils % Basophils % Absolute Neutrophils Absolute Lymphocytes Absolute Monocytes Absolute Eosinophils Absolute Basophils Sodium Potassium Chloride Carbon Dioxide Anion Gap BUN Creatinine Est GFR ( Amer) Est GFR (Non-Af Amer) Glucose Lactic Acid Calcium Total Bilirubin AST ALT Alkaline Phosphatase Total Protein Albumin TSH 5.96 H Free T4 2.00 Impressions: Head CT 06/11/17 15:51 IMPRESSION: NO ACUTE INTRACRANIAL PROCESS. NO SIGNIFICANT CHANGE FROM PRIOR STUDY. EVIDENCE OF ACUTE STROKE: NO. Chest X-Ray 06/11/17 16:14 IMPRESSION: NO ACUTE CARDIOPULMONARY PROCESS. NO SIGNIFICANT CHANGE FROM PRIOR STUDY. Assessment & Plan - Diagnosis (1) Acute cystitis Qualifiers: Hematuria presence: without hematuria Qualified Code(s): N30.00 - Acute cystitis without hematuria Is this a current diagnosis for this admission?: Yes Plan: Urine culture growing gram-negative negative rods. Patient currently on ceftriaxone. We will continue following cultures and adjust antibiotics accordingly. (2) Hypotension Qualifiers: Hypotension type: other hypotension type Qualified Code(s): I95.89 - Other hypotension Is this a current diagnosis for this admission?: Yes Plan: Most likely due to acute infection. Patient was receiving aggressive fluid resuscitation. Blood pressures are starting to come up. Will continue IV fluids for another day. Patient does have gram-negative rods growing on urine culture blood cultures without any growth at this time. (3) DVT prophylaxis Is this a current diagnosis for this admission?: Yes Plan: SCDs (4) Delirium Is this a current diagnosis for this admission?: Yes Plan: Possibly secondary to acute cystitis. Patient is currently on Rocephin. Urine cultures growing gram-negative rods. Continue to follow up urine cultures. Blood cultures without growth at this time. (5) Multiple sclerosis Is this a current diagnosis for this admission?: Yes Plan: Continue current medication. (6) Schizophrenia Is this a current diagnosis for this admission?: Yes Plan: Continue current medications. - Time Time Spent with patient: Less than 15 minutes Anticipated discharge: SNF - Patient will return to the hospital house once stable.
[2017-06-12] MEDS: NORMAL SALINE 1000 ML 1,000 ML IV PRN (21:08)
[2017-06-12] MEDS ORDERED: DIPHENHYDRAMINE HCL 50 MG/ML VIAL IV PRN (22:00)
[2017-06-13] MEDS: GABAPENTIN 300 MG CAPSULE PO SCH ×3 (05:23→22:42)
[2017-06-13] MEDS: LANSOPRAZOLE 30 MG TAB.RAP.DR PO SCH (05:23)
[2017-06-13] MEDS: NORMAL SALINE 1000 ML 1,000 ML IV PRN (05:26)
[2017-06-13] MEDS: CEFTRIAXONE 1 GM/D5W RTU 1 GM/50 ML RTUPB IV SCH (10:10)
[2017-06-13] MEDS: CHOLECALCIFEROL (D3) 1,000 UNIT TABLET PO SCH (10:12)
[2017-06-13] MEDS: TRAMADOL HCL 50 MG TABLET PO SCH ×3 (10:12→18:27)
[2017-06-13] MEDS: DIVALPROEX SODIUM 500 MG TAB.SR.24H PO SCH (10:12)
[2017-06-13] MEDS: TERBINAFINE HCL 250 MG TABLET PO SCH (10:13)
[2017-06-13] MEDS: BACLOFEN 10 MG TABLET PO SCH ×2 (10:13→18:28)
[2017-06-13] MEDS: NAPROXEN 250 MG TABLET PO SCH ×2 (10:13→18:27)
[2017-06-13] MEDS: BENZTROPINE MESYLATE 1 MG TABLET PO SCH ×2 (10:14→18:28)
--- NOTE | 2017-06-13 17:09 | PDOC PROGRESS REPORT ---
Subjective Progress Note for:: 06/13/17 Subjective:: Patient admitted for UTI. Urine currently growing gram-negative rods are not identified. Patient was initially on ceftriaxone however also IV was switched to Levaquin. Patient blood pressures are now improved and IV fluids were discontinued. Upset today and crying. Patient cannot express why she is upset. Physical Exam Vital Signs: Temp Pulse Resp BP Pulse Ox 97.9 F 31 L 18 98/72 L 66 L 06/13/17 16:43 06/13/17 16:43 06/13/17 16:43 06/13/17 16:43 06/13/17 16:43 Intake & Output 06/12/17 06/13/17 06/14/17 06:59 06:59 06:59 Intake Total 800 2924 60 Balance 800 2924 60 Weight 99 kg 103 kg General appearance: PRESENT: disheveled, mild distress, obese, other - Getting up in chair Head exam: PRESENT: normocephalic Eye exam: PRESENT: EOMI Mouth exam: PRESENT: moist, neck supple, tongue midline, other - thrusting of tongue Teeth exam: PRESENT: dental caries Neck exam: ABSENT: JVD Respiratory exam: PRESENT: clear to auscultation kevin, unlabored Cardiovascular exam: PRESENT: RRR, +S1, +S2 GI/Abdominal exam: PRESENT: normal bowel sounds, soft. ABSENT: tenderness Rectal exam: PRESENT: deferred Extremities exam: ABSENT: pedal edema Neurological exam: PRESENT: alert, awake, oriented to person Psychiatric exam: PRESENT: flat affect Focused psych exam: PRESENT: psychomotor agitation, restlessness Skin exam: PRESENT: intact, warm Results Laboratory Results: 06/12/17 06:38 06/12/17 06:38 Impressions: Head CT 06/11/17 15:51 IMPRESSION: NO ACUTE INTRACRANIAL PROCESS. NO SIGNIFICANT CHANGE FROM PRIOR STUDY. EVIDENCE OF ACUTE STROKE: NO. Chest X-Ray 06/11/17 16:14 IMPRESSION: NO ACUTE CARDIOPULMONARY PROCESS. NO SIGNIFICANT CHANGE FROM PRIOR STUDY. Assessment & Plan - Diagnosis (1) Acute cystitis Qualifiers: Hematuria presence: without hematuria Qualified Code(s): N30.00 - Acute cystitis without hematuria Is this a current diagnosis for this admission?: Yes Plan: Urine culture growing gram-negative negative rods. Patient received several doses of ceftriaxone. Patient has since lost her IV and was switched to Levaquin. Will continue to follow blood cultures which are now growing gram negative rods 2. (2) Hypotension Qualifiers: Hypotension type: other hypotension type Qualified Code(s): I95.89 - Other hypotension Is this a current diagnosis for this admission?: Yes Plan: Blood pressures are now in the 100 systolics. Patient is maintaining these blood pressures despite not receiving IV fluids. Will discontinue IV fluids. Continue to monitor blood pressures. (3) DVT prophylaxis Is this a current diagnosis for this admission?: Yes Plan: SCDs (4) Delirium Is this a current diagnosis for this admission?: Yes Plan: Possibly secondary to acute cystitis. Patient is currently on Rocephin. Urine cultures growing gram-negative rods. Continue to follow up urine cultures. Blood cultures without growth at this time. Patient delirium seems to have subsided. (5) Multiple sclerosis Is this a current diagnosis for this admission?: Yes Plan: Continue current medication. (6) Schizophrenia Is this a current diagnosis for this admission?: Yes Plan: Continue current medications. - Time Time Spent with patient: Less than 15 minutes Anticipated discharge: SNF Within: within 24 hours
[2017-06-14] MEDS: LANSOPRAZOLE 30 MG TAB.RAP.DR PO SCH (05:22)
[2017-06-14] MEDS: GABAPENTIN 300 MG CAPSULE PO SCH ×2 (05:22→16:37)
[2017-06-14] MEDS ORDERED: LEVOFLOXACIN 500 MG TABLET PO SCH (10:00)
[2017-06-14] MEDS: TRAMADOL HCL 50 MG TABLET PO SCH ×2 (10:45→16:38)
[2017-06-14] MEDS: DIVALPROEX SODIUM 500 MG TAB.SR.24H PO SCH (10:45)
[2017-06-14] MEDS: BACLOFEN 10 MG TABLET PO SCH (10:48)
[2017-06-14] MEDS: BENZTROPINE MESYLATE 1 MG TABLET PO SCH (10:48)
[2017-06-14] MEDS: NAPROXEN 250 MG TABLET PO SCH (10:49)
[2017-06-14] MEDS: TERBINAFINE HCL 250 MG TABLET PO SCH (10:49)
[2017-06-14] MEDS: CHOLECALCIFEROL (D3) 1,000 UNIT TABLET PO SCH (10:49)
--- NOTE | 2017-06-14 10:58 | PDOC DISCHARGE SUMMARY ---
General - Admit/Disc Date/PCP Admission Date/Primary Care Provider: 06/11/17 18:23 Discharge Date: 06/14/17 - Discharge Diagnosis (1) Acute cystitis Is this a current diagnosis for this admission?: Yes (2) Hypotension Is this a current diagnosis for this admission?: Yes (3) DVT prophylaxis Is this a current diagnosis for this admission?: Yes (4) Delirium Is this a current diagnosis for this admission?: Yes (5) Multiple sclerosis Is this a current diagnosis for this admission?: Yes (6) Schizophrenia Is this a current diagnosis for this admission?: Yes - Additional Information Resuscitation Status: Full Code Discharge Diet: Other (Comments) - Patient placed on pureed diet with thin liquids for due to her tongue thrusting per speech therapy recommendations. Discharge Activity: Activity As Tolerated Home Medications: Baclofen [Baclofen 10 mg Tablet] 10 mg PO BID 06/11/17 Benztropine Mesylate [Benztropine Mesylate 2 mg Tablet] 2 mg PO BID 06/11/17 Cholecalciferol (Vitamin D3) [Vitamin D3 1000 Unit Tablet] 2,000 unit PO DAILY 06/11/17 Divalproex Sodium [Divalproex Sodium ER] 500 mg PO Q12 06/11/17 Gabapentin [Neurontin 300 mg Capsule] 300 mg PO Q8 06/11/17 Haloperidol Decanoate [Haldol Decan (Monthly) 100 mg/ml Inj 1 ml] 100 mg IM [id number] 06/11/17 Lactulose [Constulose 10 gm/15 mL Oral Solution] 20 gm PO DAILY 06/11/17 Levonorgestrel-Ethin Estradiol [Trivora-28 Tablet] 1 each PO DAILY 06/11/17 Naproxen [Naprosyn] 500 mg PO BID 06/11/17 Nystatin [Mycostatin Topical Powder 15 gm] 1 applic TP Q8 06/11/17 Omeprazole 40 mg PO DAILY 06/11/17 Ondansetron [Zofran Odt 4 mg Tablet] 4 mg PO TIDP PRN 06/11/17 Terbinafine HCl [Lamisil 250 mg Tablet] 250 mg PO DAILY 06/11/17 Tramadol HCl [Ultram 50 mg Tablet] 50 mg PO Q8 #10 tablet 06/14/17 History of Present Illness History of Present Illness: TRISTA SMITH is a 46 year old female presents to the ER with complaint of weakness. Pt states that she has been weak for several days. Pt states that she does not know all of her medical problems. Pt states that she is not sure of her medical problems. Pt denies chest pain, SOB, or fever. Hospital Course Hospital Course: (1) Acute cystitis Presented with a complaint of weakness. Patient was found to have what looks like a urinary tract infection. Patient urine culture growing gram-negative negative rods. Patient received several doses of ceftriaxone. Patient has since lost her IV on 06/13/2017 and was switched to Levaquin. She received 2 doses of Levaquin. Leukocytosis had resolved and patient urinary symptoms has also resolved. She has received adequate amount of treatment and no further antibiotics is needed at this time. (2) Hypotension Patient did have some hypotension on presentation. Patient was given IV hydration. Patient blood pressures tend to fluctuate however patient is asymptomatic. He was receiving diuretics on an outpatient basis however this is being discontinued at this time. (4) Delirium Possibly secondary to acute cystitis which was treated with ceftriaxone and Levaquin. Her delirium seems to have resolved. (5) Multiple sclerosis Continue current medication. (6) Schizophrenia Continue current medications. As a result of her medications she has tardive dyskinesias. Patient was changed to pured diet with thin liquids during this hospitalization as she was having tongue thrusting making it difficult for her to eat her food. Patient was able to take her medications crushed in applesauce or pudding. She had no problems with swallowing however speech therapy was concerned about her tongue thrusting. Physical Exam Vital Signs: Temp Pulse Resp BP Pulse Ox 97.7 F 62 16 90/54 L 99 06/14/17 03:11 06/14/17 03:11 06/14/17 03:11 06/14/17 03:11 06/14/17 03:11 Intake & Output 06/13/17 06/14/17 06/15/17 06:59 06:59 06:59 Intake Total 2924 628 Balance 2924 628 Weight 103 kg 102.3 kg General appearance: PRESENT: no acute distress Head exam: PRESENT: normocephalic Eye exam: PRESENT: EOMI Mouth exam: PRESENT: moist Neck exam: PRESENT: full ROM Respiratory exam: PRESENT: clear to auscultation kevin, decreased breath sounds, unlabored. ABSENT: wheezes Cardiovascular exam: PRESENT: RRR, +S1, +S2 GI/Abdominal exam: PRESENT: normal bowel sounds, soft. ABSENT: tenderness Rectal exam: PRESENT: deferred Extremities exam: ABSENT: pedal edema Musculoskeletal exam: PRESENT: normal inspection Neurological exam: PRESENT: alert, awake, oriented to person Psychiatric exam: PRESENT: flat affect Focused psych exam: PRESENT: restlessness Skin exam: PRESENT: intact, warm Results Laboratory Results: 06/12/17 06:38 06/12/17 06:38 Impressions: Head CT 06/11/17 15:51 IMPRESSION: NO ACUTE INTRACRANIAL PROCESS. NO SIGNIFICANT CHANGE FROM PRIOR STUDY. EVIDENCE OF ACUTE STROKE: NO. Chest X-Ray 06/11/17 16:14 IMPRESSION: NO ACUTE CARDIOPULMONARY PROCESS. NO SIGNIFICANT CHANGE FROM PRIOR STUDY. Qualifiers PATEINT BEING DISCHARGED WITH ANY OF THE FOLLOWING DIAGNOSIS?: No VTE patient discharged on overlapping Therapy?: No Plan Discharge Plan: She is to follow-up with her PCP if she does have one. Patient did receive adequate antibiotic treatment for her UTI patient did receive a short course of treatment as patient was developing GI irritation from the antibiotics. If patient is able to tolerate normal diet she can have that however she was switched to pured diet here due to her tongue thrusting behavior and inability to hold food long enough in her mouth to chew it and swallow. She was evaluated by speech therapy and there is no concerned about dysphagia however the tardive dyskinesia causing involuntary tongue thrust is of concern. Time Spent: Less than 30 Minutes
[2017-06-14 15:54] VITALS: BP 122/76
[2017-06-15] MEDS ORDERED: LANSOPRAZOLE 30 MG TAB.RAP.DR PO SCH (06:00)
== END 2017-06-14 17:15 | disposition short-term general hospital (02) ==
LOC: ER 14:59 → EH 18:22 → UNDOADMOB 18:22 → EH 18:23 → 4S 23:00
DX: N30.00 Acute cystitis without hematuria (principal); B96.89 Other specified bacterial agents as the cause of diseases classified elsewhere; I95.89 Other hypotension; R41.0 Disorientation, unspecified; G35 Multiple sclerosis; F20.9 Schizophrenia, unspecified; G24.01 Drug induced subacute dyskinesia; K14.8 Other diseases of tongue; Z79.899 Other long term (current) drug therapy
CPT/HCPCS: 93005; 99285; 96361; 96365; 36415 ×2; 87040; 87086; 84439; 82553; 82550; 84443; 84703; 85025 ×2; 87088; 80053 ×2; 81001; 84484; 87186; 83605; 71020; 70450; 93010; 92610; 92526; J3490 ×23; J0696 ×3; J7030 ×3

== ENCOUNTER 2017-07-16 14:30 | Emergency (ER) | payer MEDICAID ==
[2017-07-16] MEDS ORDERED: NORMAL SALINE 1000 ML 1,000 ML IV ONE (14:39)
--- NOTE | 2017-07-16 15:06 | ER Document Report ---
ED General <LEYDI PATRICK - Last Filed: 07/16/17 19:21> - General Mode of Arrival: Medic Information source: Patient, Outside Facility Records TRAVEL OUTSIDE OF THE [place] IN LAST 30 DAYS: No <BHARATH YBARRA - Last Filed: 07/17/17 21:27> - General Stated Complaint: ALTERED MENTAL STATUS Time Seen by Provider: 07/16/17 14:37 Notes: 46 yo female sent from [facility] with decreased level of orientation and past few days and urinary retention. Flight of ideas, strange affect, Marilee Hutchinson (hospice nurse) giving me some history for end stage MS, can't walk due to MS, paranoid schizophrenia, bipolar disorder, neuropathy, diet controlled DM, GERD, generalized weakness, hypothyroidism, tardive dyskinesia facial muscles, OA, GERD, urinary retention, Code status: Full Code. (BHARATH YBARRA) - Related Data Allergies/Adverse Reactions: Macrolide Antibiotics Allergy (Verified 03/29/17 11:56) yellow dye Allergy (Verified 03/29/17 11:56) ketolides Allergy (Uncoded 03/29/17 11:56) yellow dye non-tartrazine Allergy (Uncoded 03/29/17 11:56) Past Medical History - General Information source: Patient, Outside Facility Records - hospice nurse Marilee - Social History Smoking Status: Never Smoker Frequency of alcohol use: None Drug Abuse: None Lives with: Other - [facility] Family History: None Renal/ Medical History: Denies: Hx Peritoneal Dialysis GI Medical History: Reports: Hx Gastroesophageal Reflux Disease Musculoskeltal Medical History: Reports Hx Multiple Sclerosis Psychiatric Medical History: Reports: Hx Bipolar Disorder, Hx Schizophrenia Past Surgical History: Reports: Other - Pt not sure of medical history. - Immunizations Hx Diphtheria, Pertussis, Tetanus Vaccination: Yes <BHARATH YBARRA - Last Filed: 07/17/17 21:27> Review of Systems - Review of Systems Constitutional: No symptoms reported EENT: No symptoms reported Cardiovascular: No symptoms reported Respiratory: No symptoms reported Gastrointestinal: No symptoms reported Genitourinary: See HPI Female Genitourinary: No symptoms reported Musculoskeletal: No symptoms reported Skin: No symptoms reported Hematologic/Lymphatic: No symptoms reported Neurological/Psychological: See HPI <BHARATH YBARRA - Last Filed: 07/17/17 21:27> Physical Exam - Vital signs Interpretation: Normal - General General appearance: Appears well, Alert - HEENT Head: Normocephalic, Atraumatic Eyes: Normal Pupils: PERRL Mucous membranes: Dry Pharynx: Normal Neck: Supple. No: Lymphadenopathy - Respiratory Respiratory status: No respiratory distress Chest status: Nontender Breath sounds: Normal Chest palpation: Normal - Cardiovascular Rhythm: Regular Heart sounds: Normal auscultation Murmur: No - Abdominal Inspection: Normal Distension: No distension Bowel sounds: Normal Tenderness: Nontender Organomegaly: No organomegaly - Back Back: Normal, Nontender - Extremities General upper extremity: Normal inspection, Nontender, Normal color, Normal ROM , Normal temperature General lower extremity: Normal inspection, Nontender, Normal color, Normal ROM , Normal temperature, Normal weight bearing. No: Rafy's sign Foot: Nontender, Other - right lower leg, mottled with red skind that is cooler than left lower leg. weaker 1 + pulse right foot, vs 2+ left foot - Neurological Neuro grossly intact: Yes Cognition: Normal Orientation: AAOx4 [place] Coma Scale Eye Opening: Spontaneous [place] Coma Scale Verbal: Oriented [place] Coma Scale Motor: Obeys Commands [place] Coma Scale Total: 15 Speech: Normal Motor strength normal: LUE, RUE, LLE, RLE Sensory: Normal - Psychological Associated symptoms: Normal affect, Normal mood - Skin Skin Temperature: Warm Skin Moisture: Dry Skin Color: Normal Skin irregularity: negative: Rash <BHARATH YBARRA - Last Filed: 07/17/17 21:27> - Vital signs Vitals: Resp 19 07/16/17 15:09 Course - Laboratory Result Diagrams: 07/16/17 15:20 07/16/17 15:20 <LEYDI PATRICK - Last Filed: 07/16/17 19:21> - Laboratory Result Diagrams: 07/16/17 15:20 07/16/17 15:20 <BHARATH YBARRA - Last Filed: 07/17/17 21:27> - Re-evaluation Re-evalutation: 07/16/17 18:30 The urinalysis shows greater than 100,000 white blood cells, Rocephin 1 g has been given since that was sensitive antibiotics for the last urinary tract infection that she was treated for on June 11 which was E. coli and Morganella Himanshu I. Oral antibiotics for this pathogen can be ciprofloxacin. Venous and arterial Dopplers are negative. Will consult dr. robles for dispo. OK to go back to [facility] with cipro. 07/16/17 18:39 cranberry juice PO, she states it tastes good. ordered dinner for her. Has to wait until 2300 for transport back to [facility]. Care transferred to Leydi PEREZ at the bedside (BHARATH YBARRA) - Vital Signs Vital signs: Temp Pulse Resp BP Pulse Ox 98.4 F 66 10 L 128/87 H 93 07/16/17 15:42 07/16/17 15:42 07/16/17 20:00 07/16/17 18:23 07/16/17 20:00 - Laboratory Laboratory results interpreted by me: 07/16/17 07/16/17 15:00 15:20 Hct 35.3 L RDW 14.7 H Urine Protein >=500 H Urine Nitrite POSITIVE H Urine Urobilinogen 4.0 H Ur Leukocyte Esterase LARGE H Discharge <LEYDI PATRICK - Last Filed: 07/16/17 19:21> <BHARATH YBARRA - Last Filed: 07/17/17 21:27> - Discharge Clinical Impression: vascular insufficiency right lower leg, Multiple sclerosis, Acute UTI, facial dystonia Urinary tract infection Qualifiers: Urinary tract infection type: site unspecified Hematuria presence: without hematuria Qualified Code(s): N39.0 - Urinary tract infection, site not specified Schizophrenia Qualifiers: Schizophrenia type: unspecified Qualified Code(s): F20.9 - Schizophrenia, unspecified Condition: Good Disposition: SNF-Other Instructions: Ciprofloxacin ([facility]), Rocephin ([facility]), Urinary Tract Infection ([facility] ) Additional Instructions: keep right foot warm drink more water daily, large cup sent back with her start the ciprofloxicin tomorrow twice a day to er if vomiting fever chills sweats or feels worse Please complete the patient satisfaction survey if you get one, and return it.. If you do not receive a survey, then you can go to the [facility] website, [email or web address] and place your comments about your very good care. Thank you very much. It was a pleasure being your medical provider today. Prescriptions: Ciprofloxacin HCl [Cipro 500 mg Tablet] 500 mg PO BID #20 tablet Referrals: JANEY RODRIGUEZ MD [ACTIVE STAFF] - Follow up tomorrow (call for appointment)
[2017-07-16 15:38] LABS: ABSOLUTE BASOPHILS # (AUTO) 0.1 10^3/uL (0.0-0.2); ABSOLUTE EOSINOPHILS # (AUTO) 0.1 10^3/uL (0.0-0.6); ABSOLUTE MONOCYTES (AUTO) 1.1 10^3/uL (0.1-1.4); ABSOLUTE NEUT (AUTO) 6.2 10^3/uL (1.7-8.2); BASOPHILS % (AUTO) 0.8 % (0-2); EOSINOPHILS % (AUTO) 0.6 % (0-6); HEMATOCRIT 35.3 % (36.0-47.0); HEMOGLOBIN 12.3 g/dL (12.0-15.5); HGB HCT DIFFERENCE 1.6; LYMPHOCYTES % (AUTO) 28.9 % (13-45); MEAN CORPUSCULAR HEMOGLOBIN 32.3 pg (27.0-33.4); MEAN CORPUSCULAR HGB CONC 34.8 g/dL (32.0-36.0); MEAN CORPUSCULAR VOLUME 93 fl (80-97); MONOCYTES % (AUTO) 10.8 % (3-13); RED BLOOD COUNT 3.79 10^6/uL (3.72-5.28); RED CELL DISTRIBUTION WIDTH 14.7 % (11.5-14.0); SEGMENTED NEUTROPHILS % (AUTO) 58.9 % (42-78); VENOUS BLOOD BASE EXCESS 5.5 mmol/L; VENOUS BLOOD HCO3 31.5 mmol/L (20-32); VENOUS BLOOD PCO2 52.1 mmHg (35-63); VENOUS BLOOD PH 7.4 (7.30-7.42); WHITE BLOOD COUNT 10.5 10^3/uL (4.0-10.5)
[2017-07-16] MEDS ORDERED: CEFTRIAXONE 1 GM/D5W RTU 1 GM/50 ML RTUPB IV ONE (15:54)
[2017-07-16 15:59] LABS: ALANINE AMINOTRANSFERASE 22 U/L (9-52); ALBUMIN 3.8 g/dL (3.5-5.0); ALKALINE PHOSPHATASE 66 U/L (38-126); ANION GAP 12 (5-19); ASPARTATE AMINO TRANSFERASE 18 U/L (14-36); BILIRUBIN,DIRECT 0.3 mg/dL (0.0-0.4); BILIRUBIN,TOTAL 0.5 mg/dL (0.2-1.3); BLOOD UREA NITROGEN 17 mg/dL (7-20); CALCIUM 9.4 mg/dL (8.4-10.2); CARBON DIOXIDE 28 mmol/L (22-30); CHLORIDE 104 mmol/L (98-107); CREATININE RESULT 0.72 mg/dL (0.52-1.25); GLUCOSE 92 mg/dL (75-110); MAGNESIUM 1.9 mg/dL (1.6-2.3); POTASSIUM 4.3 mmol/L (3.6-5.0); SODIUM 144.4 mmol/L (137-145); TOTAL PROTEIN 6.9 g/dL (6.3-8.2)
[2017-07-16 16:16] LABS: APPEARANCE,URINE CLOUDY; BILIRUBIN,URINE NEGATIVE (NEGATIVE); GLUCOSE, URINE NEGATIVE (NEGATIVE); KETONES,URINE NEGATIVE (NEGATIVE); LEUKOCYTE ESTERASE,URINE LARGE (NEGATIVE); NITRITE,URINE POSITIVE (NEGATIVE); PROTEIN,URINE >=500 mg/dL (NEGATIVE); URINE SPECIFIC GRAVITY 1.016
--- NOTE | 2017-07-16 17:02 | RADIOLOGY REPORT (SQ) ---
EXAM DESCRIPTION: CHEST SINGLE VIEW COMPLETED DATE/TIME: 07/16/2017 4:55 pm REASON FOR STUDY: altered mental status COMPARISON: 06/11/2017 EXAM PARAMETERS: NUMBER OF VIEWS: One view. TECHNIQUE: Single frontal radiographic view of the chest acquired. RADIATION DOSE: NA LIMITATIONS: None. FINDINGS: LUNGS AND PLEURA: No opacities, masses or pneumothorax. No pleural effusion. MEDIASTINUM AND HILAR STRUCTURES: No masses. Contour normal. HEART AND VASCULAR STRUCTURES: Heart normal in size. Normal vasculature. BONES: No acute findings. HARDWARE: None in the chest. OTHER: No other significant finding. IMPRESSION: NO ACUTE RADIOGRAPHIC FINDING IN THE CHEST. TECHNICAL DOCUMENTATION: JOB ID: [id number] [employer]- All Rights Reserved
--- NOTE | 2017-07-16 17:18 | RADIOLOGY REPORT (SQ) ---
EXAM DESCRIPTION: VENOUS UNILATERAL LOWER COMPLETED DATE/TIME: 07/16/2017 5:11 pm REASON FOR STUDY: mottled cold right foot COMPARISON: None. TECHNIQUE: Dynamic and static hawkins scale and color images acquired of the right leg venous system. S elected spectral images acquired with additional compression and augmentation maneuvers. The contrala teral common femoral vein and saphenofemoral junction were also imaged. Images stored on PACS. LIMITATIONS: None. FINDINGS: COMMON FEMORAL: Normal phasicity, compression and augmentation. No visualized echogenic ma terial on hawkins scale. No defects on color images. FEMORAL: Normal compression and augmentation. No visualized echogenic material on hawkins scale. No defe cts on color images. POPLITEAL: Normal compression, augmentation. No visualized echogenic material on hawkins scale. No defec ts on color images. CALF VESSELS: Normal compression, augmentation. No visualized echogenic material on hawkins scale. No de fects on color images. GSV and SSV: Normal compression, augmentation. No visualized echogenic material on hawkins scale. No def ects on color images. ANY DEEP VENOUS INSUFFICIENCY: Not evaluated. ANY EVIDENCE OF POPLITEAL CYST: No. OTHER: No other significant finding. CONTRALATERAL COMMON FEMORAL VEIN AND SAPHENOFEMORAL JUNCTION: Normal phasicity, compression and augmentation. No visualized echogenic material on hawkins scale. No de fects on color images. IMPRESSION: NO EVIDENCE DVT OR SVT IN THE RIGHT LEG. TECHNICAL DOCUMENTATION: JOB ID: [id number] [employer]- All Rights Reserved
--- NOTE | 2017-07-16 19:56 | XCELERA REPORT ---
[address] [address] Lower Extremity Arterial Evaluation Name: TRISTA SMITH Age: 46 yrs Gender: Female : 1970 Patient Status: Emergency Patient Location: ER Study Date: 07/16/2017 03:54 PM Procedure: A color flow and duplex scan of the lower extremity arteries was performed on the right with velocity and waveform anaylsis. Reason For Study: willam weir right foot Ordering Physician: BHARATH YBARRA Performed By: Estefani Diego Measurements and Calculations Right Left MEASUREMENT SUPERINTENDENT PSV 123.2 cm/sec Prox PFA PSV -101.2 cm/sec Prox SFA PSV 68.4 cm/sec Mid SFA PSV 82.9 cm/sec Dist SFA PSV -54.8 cm/sec Prox Pop A PSV 40.0 cm/sec Dist ENRRIQUE PSV 35.3 cm/sec Dist GEOLOGY SCIENTIST PSV 38.8 cm/sec Skyler Pedis PSV 25.7 68.1 cm/sec Right Side Arterial Evaluation Normal velocity and triphasic waveforms noted from the Common Femoral artery to the Posterior Tibial artery. Biphasic inn the Anterior Tibial artery. 0-19% stenosis at the Anterior Tibial artery. Ankle Brachial index was not done. Critical Findings Called in to the ER. Interpretation Summary Mild hemodynamically significant lesions in the right lower extremity only, on duplex imaging, at rest. : BHARATH YBARRA > Zac Rodriguez
[2017-07-16 20:22] VITALS: BP 128/87
== END 2017-07-16 20:54 ==
LOC: ER 14:30
DX: I87.2 Venous insufficiency (chronic) (peripheral) (principal); G35 Multiple sclerosis; R41.82 Altered mental status, unspecified; G24.9 Dystonia, unspecified; N39.0 Urinary tract infection, site not specified; F20.9 Schizophrenia, unspecified; E03.9 Hypothyroidism, unspecified; K21.9 Gastro-esophageal reflux disease without esophagitis; R53.1 Weakness
CPT/HCPCS: 99285; 96361; 51701; 96365; 36415; 87040; 87086; 83735; 85025; 87088; 80053; 81001; 87186; 82803; 83605; 93926 ×2; 93971; 71010; J7030; J0696

== ENCOUNTER 2017-11-20 12:48 | Emergency (ER) | payer MEDICAID ==
--- NOTE | 2017-11-20 13:24 | ER Document Report ---
ED General - General Chief Complaint: Other Stated Complaint: POSSIBLE BLOOD CLOT Time Seen by Provider: 11/20/17 13:06 Information source: Patient Notes: Patient is a 47-year-old female with past medical history including schizophrenia and multiple sclerosis who is at the [facility] hospice who presents today with Shannon the hospice nurse noted that her bilateral feet seemed a little cold and she could not palpate a pulse to the right lower foot. EMS thought that they smelled some "foul-smelling urine". Shannon who is currently in the room states she now feels a pulse and is relieved. Supposedly the patient has had no fevers, vomiting, diarrhea, or cough. Repeat blood pressure here as recorded. Reviewing the patient's chart it appears the patient has similar presentation in July 2017 with arterial and venous studies that showed no clot. Patient is baseline confused according to Shannon. Patient does state that she has some intermittent dysuria over the last 2 days. She herself denies any fever or diarrhea. TRAVEL OUTSIDE OF THE [place] IN LAST 30 DAYS: No - HPI Onset: Other - See above Onset/Duration: Gradual Quality of pain: No pain Severity: Mild Pain Level: Denies Associated symptoms: Other - See above Exacerbated by: Denies Relieved by: Denies Similar symptoms previously: Yes Recently seen / treated by doctor: Yes - Related Data Allergies/Adverse Reactions: Macrolide Antibiotics Allergy (Verified 11/20/17 13:51) yellow dye Allergy (Verified 11/20/17 13:51) ketolides Allergy (Uncoded 11/20/17 13:51) yellow dye non-tartrazine Allergy (Uncoded 11/20/17 13:51) Past Medical History - General Information source: Patient, Emergency Med Personnel - Social History Smoking Status: Unknown if Ever Smoked Cigarette use (# per day): No Chew tobacco use (# tins/day): No Smoking Education Provided: No Frequency of alcohol use: None Drug Abuse: None Family History: None Renal/ Medical History: Denies: Hx Peritoneal Dialysis GI Medical History: Reports: Hx Gastroesophageal Reflux Disease Musculoskeltal Medical History: Reports Hx Multiple Sclerosis Psychiatric Medical History: Reports: Hx Bipolar Disorder, Hx Schizophrenia Past Surgical History: Reports: Other - Pt not sure of medical history. - Immunizations Hx Diphtheria, Pertussis, Tetanus Vaccination: Yes Review of Systems - Review of Systems Constitutional: denies: Fever EENT: denies: Eye discharge, Nose discharge Cardiovascular: denies: Chest pain, Palpitations, Heart racing Respiratory: denies: Short of breath Gastrointestinal: denies: Vomiting Genitourinary: denies: Dysuria Musculoskeletal: denies: Leg swelling Skin: Other - no hives. denies: Rash Neurological/Psychological: Other - no slurred speech -: Yes All other systems reviewed and negative Physical Exam - Vital signs Vitals: Resp Pulse Ox 18 100 11/20/17 12:58 11/20/17 12:58 Notes: Reviewed vital signs and nursing note as charted by RN. CONSTITUTIONAL: Alert and polite and does appear to answer questions appropriately. Well-appearing; well-nourished HEAD: Normocephalic; atraumatic EYES: PERRL NECK: Supple without meningismus; non-tender CARD: Regular rate and rhythm; no murmurs RESP: Normal chest excursion without splinting or tachypnea; breath sounds clear and equal bilaterally ABD/GI: Normal bowel sounds; non-distended; soft, minimally tender the suprapubic region without rebound or guarding present BACK: The back appears normal and is non-tender to palpation EXT: Normal ROM in all joints; non-tender to palpation; no edema; normal color and temperature to bilateral feet. Palpable dorsalis pedis pulses bilaterally SKIN: Normal color for age and race; no acute lesions noted NEURO: Moves all extremities equally; Motor and sensory function intact PSYCH: The patient's mood and manner are appropriate. Grooming and personal hygiene are appropriate. Course - Re-evaluation Re-evalutation: 11/20/17 13:50 Given the history and physical examination I do not believe that the patient requires any vascular studies at this time. We will obtain basic labs as well as a catheterized urine analysis. Repeat blood pressure was normal with no signs of tachycardia. 11/20/17 14:23 Urine analysis as recorded. Patient's labs as recorded. Urine culture has been sent and a dose of Rocephin has been given. Patient is not tachycardic. No change in abdominal exam. Liter of fluid will be provided prior to discharge and the patient will be discharged home on antibiotics with culture pending. - Vital Signs Vital signs: Temp Pulse Resp BP Pulse Ox 98.6 F 18 104/86 H 96 11/20/17 13:00 11/20/17 14:01 11/20/17 14:01 11/20/17 14:01 - Laboratory Result Diagrams: 11/20/17 12:36 11/20/17 12:36 Laboratory results interpreted by me: 11/20/17 13:43 Urine Protein 100 H Urine Ketones TRACE H Urine Blood MODERATE H Urine Nitrite POSITIVE H Urine Urobilinogen 4.0 H Ur Leukocyte Esterase MODERATE H Discharge - Discharge Clinical Impression: UTI (urinary tract infection) Qualifiers: Urinary tract infection type: site unspecified Hematuria presence: without hematuria Qualified Code(s): N39.0 - Urinary tract infection, site not specified Condition: Good Disposition: HOME, SELF-CARE Additional Instructions: Come back immediately for any increased pain, weakness or numbness, fevers or persistent vomiting, back pain, or any other acute problems. Please make sure that she follows-up with the primary care physician for reevaluation and urine culture investigation as we have discussed. Prescriptions: Cephalexin Monohydrate [Keflex 500 mg Capsule] 500 mg PO Q6H 10 Days #40 capsule
[2017-11-20 13:49] LABS: ABSOLUTE EOSINOPHILS # (AUTO) 0.2 10^3/uL (0.0-0.6); ABSOLUTE MONOCYTES (AUTO) 0.8 10^3/uL (0.1-1.4); ABSOLUTE NEUT (AUTO) 4.1 10^3/uL (1.7-8.2); BASOPHILS % (AUTO) 0.5 % (0-2); EOSINOPHILS % (AUTO) 2.1 % (0-6); HEMATOCRIT 36.7 % (36.0-47.0); HEMOGLOBIN 12.6 g/dL (12.0-15.5); LYMPHOCYTES % (AUTO) 43.4 % (13-45); MEAN CORPUSCULAR HEMOGLOBIN 31.9 pg (27.0-33.4); MEAN CORPUSCULAR HGB CONC 34.4 g/dL (32.0-36.0); MEAN CORPUSCULAR VOLUME 93 fl (80-97); MONOCYTES % (AUTO) 9.2 % (3-13); PLATELET COUNT 295 10^3/uL (150-450); RED BLOOD COUNT 3.95 10^6/uL (3.72-5.28); RED CELL DISTRIBUTION WIDTH 13.9 % (11.5-14.0); SEGMENTED NEUTROPHILS % (AUTO) 44.8 % (42-78); TOTAL CELLS COUNTED % (AUTO) 100 %; WHITE BLOOD COUNT 9.2 10^3/uL (4.0-10.5)
[2017-11-20 13:59] LABS: ALANINE AMINOTRANSFERASE 20 U/L (9-52); ALBUMIN 3.6 g/dL (3.5-5.0); ALKALINE PHOSPHATASE 74 U/L (38-126); ANION GAP 12 (5-19); ASPARTATE AMINO TRANSFERASE 20 U/L (14-36); BILIRUBIN,DIRECT 0.4 mg/dL (0.0-0.4); BILIRUBIN,TOTAL 0.4 mg/dL (0.2-1.3); BLOOD UREA NITROGEN 17 mg/dL (7-20); CALCIUM 9.7 mg/dL (8.4-10.2); CARBON DIOXIDE 28 mmol/L (22-30); CHLORIDE 103 mmol/L (98-107); GLUCOSE 81 mg/dL (75-110); POTASSIUM 3.9 mmol/L (3.6-5.0); SODIUM 142.7 mmol/L (137-145); TOTAL PROTEIN 7.1 g/dL (6.3-8.2)
[2017-11-20 14:12] LABS: APPEARANCE,URINE TURBID; BILIRUBIN,URINE NEGATIVE (NEGATIVE); CALCIUM OXALATE CRYSTALS,URINE FEW /HPF; COLOR,URINE YELLOW; GLUCOSE, URINE NEGATIVE (NEGATIVE); KETONES,URINE TRACE mg/dL (NEGATIVE); LEUKOCYTE ESTERASE,URINE MODERATE (NEGATIVE); NITRITE,URINE POSITIVE (NEGATIVE); PROTEIN,URINE 100 mg/dL (NEGATIVE); URINE SPECIFIC GRAVITY 1.023
[2017-11-20] MEDS ORDERED: CEFTRIAXONE RTU 1 GM/D5W 50 ML IV ONE (14:22)
[2017-11-20] MEDS ORDERED: NORMAL SALINE 1000 ML 1,000 ML IV ONE (14:25)
[2017-11-20] MEDS ORDERED: CEFTRIAXONE INJ 1000 MG VIAL IV ONE (14:30)
--- NOTE | 2017-11-20 15:49 | EKG REPORT ---
SEVERITY:- BORDERLINE ECG - SINUS RHYTHM SHORT TX INTERVAL, ACCELERATED AV CONDUCTION PROBABLE LEFT ATRIAL ABNORMALITY : Confirmed by: Ellen Smith 20-Nov-2017 15:49:14
[2017-11-20 16:01] VITALS: BP 141/80
== END 2017-11-20 16:02 | disposition home or self-care (01) ==
LOC: ER 12:48
DX: N39.0 Urinary tract infection, site not specified (principal); G35 Multiple sclerosis; Z88.1 Allergy status to other antibiotic agents; Z91.048 Other nonmedicinal substance allergy status
CPT/HCPCS: 93005; 99285; 51701; 96365; 36415; 87086; 85025; 87088; 80053; 81001; 87186; 93010; J0696; J7030